=== PATIENT | female | born 1940 | race Caucasian/White ===

== ENCOUNTER 2021-04-21 21:53 | Inpatient (IN) | payer MEDICARE, OTHER, SELFPAY ==
[2021-04-21 22:55] VITALS: O2SAT 97
[2021-04-21 23:23] VITALS: BP 182/77; PULSE 71; RESP 20; TEMP 36.5; O2SAT 97
[2021-04-22] VITALS (29 sets, daily range): BP systolic 78–139; BP diastolic 41–74; PULSE 61–99; RESP 8–92; TEMP 36.2–36.6; O2SAT 9–98; BMI 21.1
[2021-04-22] MEDS: HYDROCODONE/ACET 5/325 TABLET 2 TAB PO (00:20)
[2021-04-22] MEDS: LACTATED RINGERS 1,000 ML 100 ML IV (00:22)
[2021-04-22] MEDS: HYDROMORPHONE 0.5 MG INJ IV ×4 (01:25→14:07)
--- NOTE | 2021-04-22 02:50 | PC.ADMIT ---
Patient admitted to room 213 just prior to shift change. Came via stretcher and transferred into bed with lift sheet. Admitted for left hip fx due to fall she had at home. Is alert and oriented. JACKSON and states she has hearing aids but they are at her home. Breath sounds CTA with sat of 97% on oxygen at 2L/min per NC (arrived with oxygen on) so decreased to 1L/min and will wean as able. HRR with telemetry reading of SR. BP elevated at 182/77; STENCIL SPRAYERMateo, made aware with no new orders. Complained of slight nausea but declined antiemetic. BT present and abdomen is soft. Indwelling catheter in place on arrival and urine is clear yellow. Complained of 6-7/10 pain in left hip and was initially medicated with Vicodin and ice applied; then 1 hour later given IV Dilaudid and is now resting comfortably. Is currently on bedrest and NPO due to hip fx with impending surgical repair later today. Bilateral calf SCD's applied. Fall risk score is high and bed alarm is activated. [email or web address] [facility] Admission Note: The patient,Rosa Markham,81 y/o, was given written information regarding hospital policies, unit procedures and contact persons. Patient's smoking status: Former smoker. Vital Signs - 8 hr 04/21/21 22:55 04/21/21 23:23 Temperature 97.7 F Pulse Rate 71 Respiratory Rate 20 Blood Pressure 182/77 H Pulse Oximetry 97 97
[2021-04-22 05:53] LABS: Add Manual Diff / Slide Review NO; Basophils Absolute Auto 0 /uL (0-100); Basophils Percent Auto 0.1 % (0-2); Eosinophils Absolute Auto 0 /uL (0-450); Eosinophils Percent Auto 0.1 % (2-4); Hematocrit 35.7 % (36-46); Hemoglobin 11.8 g/dL (12.0-16.0); Lymphocytes Absolute Auto 1100 /uL (1100-4500); Lymphocytes Percent Auto 8.5 % (25-40); Mean Corpuscular HGB Conc 33.1 % (30-36); Mean Corpuscular Volume 99.6 fL (80-100); Monocytes Absolute Auto 1200 /uL (0-900); Monocytes Percent Auto 9.5 % (3-14); Neutrophils Absolute Auto 10200 /uL (1500-7000); Neutrophils Percent Auto 81.8 % (50-75); Platelet Count 179 X10^3/uL (150-400); Red Blood Cell Count 3.58 X10^6/uL (4.0-5.2); Red Cell Distribution Width 12.9 % (11.6-14.8); White Blood Cell Count 12.4 X10^3/uL (4.5-11.0)
--- NOTE | 2021-04-22 05:54 | P.HP_ITS ---
History of Present Illness History of Present Illness Date Patient Seen: 04/21/21 Time Patient Seen: 23:03 Chief complaint: L FEMORAL NECK FX Narrative: Patient is Rosa Markham a 81-year-old female who was getting up out of her computer chair at home and tripped and fell hitting her left side and her head on another chair in the room lacerating her left lateral eyebrow. The patient was able to get her 's attention who called EMS she was transported to [facility] ED. Dr. Zelaya kindly accepted the patient for surgical intervention, and patient was transferred to [facility] as a direct admit for left femur fracture following ground level fall and laceration to forehead. Patient denies loss of consciousness, chest pain, shortness of breath, nausea, vomiting, abdominal pain, fever, body aches, chills, recent illness injury or trauma other than the above documented incident. Patient is not on any blood thinners. Upon arrival patient is in a significant amount of pain to the left hip area and leg. Patient is alert and orientated, her blood pressure is slightly elevated 182/77, HR 71, R 20, O2 saturation 97% on room air. We did not receive H&P or physician notes from General we did receive her labs which were for the most part unremarkable. Head CT was negative for acute intracranial processes and left leg x-ray demonstrated displaced left femoral fracture. Patient History Medical History (Updated 04/22/21 @ 06:00 by TOMMY Stevens-LANEY) Chronic back pain Essential hypertension Hyperlipidemia Surgical History (Updated 04/22/21 @ 06:00 by TOMMY Stevens-LANEY) History of appendectomy History of lumbar discectomy Family & Social History Family History (Updated 04/22/21 @ 06:01 by TOMMY Stevens-LANEY) Mother Heart attack Father Heart attack Sister ALS (amyotrophic lateral sclerosis) Social History: household members spouse Prior Living Arrangements House Safety & Behavioral: Feels Safe in Current Yes Environment Been Physically Hurt or No Threatened By a Person Suicidal Ideation Description None Suicide Plan Description No Plan Tobacco & Substance use: Smoking Status Former smoker alcohol intake never Substance Use Type does not use Meds Home Medications and Allergies Home Medications Medication Instructions Recorded Confirmed Type aspirin 325 mg tablet 325 mg PO DAILY 04/22/21 04/22/21 History atorvastatin 40 mg tablet 40 mg PO BEDTIME 04/22/21 04/22/21 History chlorthalidone 25 mg tablet 25 mg PO DAILY 04/22/21 04/22/21 History cholecalciferol (vitamin D3) 50 50 mcg PO DAILY 04/22/21 04/22/21 History mcg (2,000 unit) capsule gabapentin 100 mg capsule 200 mg PO BEDTIME 04/22/21 04/22/21 History metoprolol succinate 100 mg 100 mg PO DAILY 04/22/21 04/22/21 History capsule sprinkle, ext. release 24 hr multivitamin 1 tab PO DAILY 04/22/21 04/22/21 History Allergies Allergy/AdvReac Type Severity Reaction Status Date / Time No Known Drug Allergies Allergy Verified 04/22/21 00:16 Review of Systems Review of Systems Narrative: All 12 point systems reviewed with the patient and are negative except otherwise documented. Exam Vital Signs (past 8 hours): - 04/21/21 22:55 04/21/21 23:23 04/22/21 03:15 Temperature 97.7 F 97.8 F Pulse Rate 71 69 Respiratory Rate 20 18 Blood Pressure 182/77 H 137/60 Pulse Oximetry 97 97 95 Oxygen Delivery Method Nasal Cannula Oxygen Flow Rate 1 Narrative Exam Narrative: General: Patient is a ana well-developed, well-nourished female in moderate pain, but in no physiologic distress at this time. HEENT: Normocephalic, atraumatic, extraocular muscles intact, oral pharynx is clear and mucous membranes are moist. Neck is supple and symmetric, trachea is midline, no adenopathy, no thyroid enlargement, nontender, no masses palpated. Negative for JVD Chest: Normal AP diameter and contour without kyphoscoliosis, no nasal flaring, retractions, or tachypneic labored Lungs: Auscultation of all lung haddad are clear without adventitious sounds, wheezes, rhonchi, or rales. Cardio: S1 & S2 with regular rate and rhythm without murmur, rubs, or gallops, no carotid bruit, no cardiac pulsations present. Abdomen: Soft nontender, negative for organomegaly, or masses. Bowel sounds are present in all 4 quadrants without guarding or rebound, no CVA tenderness. Musculoskeletal: Left protrusion deformity noted at approximately the head of the left femur. all other 3 extremities- no deformity, crepitus, effusions, cyanosis, clubbing or edema present. radial and pedal pulses are normal. Skin: Warm dry and intact without rashes, ulcerations or petechiae. Patient does have sutured left laceration to the lateral edge of the left eyebrow. Neuro: Alert and orientated x3, sensation to touch intact, no gross deficits no satnam of cranial nerves. Psych: Patient has a well-kept appearance, appropriate affect, mental status attitude thought context and judgment are appropriate for age. Objective Labs Result Diagrams: 04/22/21 05:20 04/22/21 05:20 Assessment & Plan Assessment & Plan narrative: Patient is a 81-year-old female with history of hypertension, hyperlipidemia, chronic back pain who had a mechanical ground level fall at home resulting in a displaced left for moral fracture and laceration to forehead. Dr. Malloy graciously accepted the patient for surgery candidate. 1. Mechanical ground level fall resulting in left femoral displaced fracture and forehead laceration, acute, present on admission -patient on bed rest, catheter placed, NPO after midnight, pain control and inflammation -patient on LR at 100 cc/hour, blood sugar checks q.6 hours while NPO -a.m. labs ordered CBC CMP PT and PTT -Patient to go to the OR tomorrow with Dr. Zelaya for femur repai -I did not have patient's chart notes from [facility] to review, 3-4 attempts were made to obtain chart note records starting at approximately 8:00 p.m. 2. Essential hypertension, acute on chronic, present on admission-uncontrolled -continue patient's chlorothiazide and metoprolol 3. Hyperlipidemia, chronic, present on admission Continue patient's Lipitor 4. Chronic back pain, chronic, present on admission Continue patient's gabapentin Code status: Full code Surrogate decision maker: spouse Nick Lowery COVID PCR: Negative COVID vaccination: Pfizer November of 2020 DVT/VTE prophylaxis: Contraindicated due to surgery, SCDs only Disposition: Admit greater than 2 midnights. I have utilized all available immediate resources to obtain, update, or review the patient's current medications. I confirmed that the patient's advanced care plan is present, Code status is documented and/or surrogate decision maker is listed in the patient's medical record.
[2021-04-22 06:02] LABS: INR 1.1 (0.9-1.3); Prothrombin Time 12.2 SECONDS (10.1-12.7)
[2021-04-22 06:04] LABS: PTT Partial Thromboplastin Tim 32 SECONDS (26.4-36.2)
[2021-04-22 06:07] LABS: Alanine Aminotransferase 28 IU/L (<35); Albumin 4.2 g/dL (3.5-5.0); Albumin Globulin Ratio 1.4 (1.0-2.8); Alkaline Phosphatase 82 U/L (38-126); Aspartate Aminotransferase 38 IU/L (14-36); Bilirubin Total 0.8 mg/dL (0.2-1.3); Blood Urea Nitrogen 24 mg/dL (7-17); Carbon Dioxide 30 mmol/L (22-32); Chloride 100 mmol/L (98-107); Estimated Glomerular Filt Rate 56.1 mL/min (>60); Glucose 112 mg/dL (80-110); HEMOLYSIS < 15 (0-50); Magnesium 1.3 mg/dL (1.6-2.3); Potassium 4.4 mmol/L (3.4-5.1); Sodium 137 mmol/L (137-145); Total Protein 7.2 g/dL (6.3-8.2)
[2021-04-22] MEDS: MAGNESIUM SULFATE 2 GM/50 ML PIGGYBACK IV (07:37)
--- NOTE | 2021-04-22 08:16 | PM.CN ---
History of Present Illness Consult details Date Patient Seen: 04/22/21 Time Patient Seen: 08:16 Chief complaint: L FEMORAL NECK FX Reason for consult: Left femoral neck fracture Requesting provider: Silvina Galindo Narrative: Patient is a 81-year-old female that sustained a ground level fall tripping getting up from her computer and injured her left hip. She was taken to [facility] found a displaced left femoral neck fracture this injury occurred on Thursday04/21/2021. Due to the COVID pandemic and unavailability of hospital bed as within the [facility] or other closer hospital systems transfer to [facility] was completed. She also hit her head during her fall and has a few stitches left side of her episcopal. She did have a CT scan at the outside hospital that was negative for intracranial processes. She is alert and awake and axes her own historian today. She states she had immediate pain when she fell. She does have a history of osteopenia in the past but does not believe she had osteoporosis. She is a community ambulator without assistive devices. She lives at home with her has additional family or friends close by. Patient does state she used to take Actonel for about 5 years but this was stopped many years ago.--she is a former smoker but quit many years ago. She does note that her still smokes at home but does not smoke around her or in the house. She does not take any blood thinners. Meds Home Medications and Allergies Home Medications Medication Instructions Recorded Confirmed Type aspirin 325 mg tablet 325 mg PO DAILY 04/22/21 04/22/21 History atorvastatin 40 mg tablet 40 mg PO BEDTIME 04/22/21 04/22/21 History chlorthalidone 25 mg tablet 25 mg PO DAILY 04/22/21 04/22/21 History cholecalciferol (vitamin D3) 50 50 mcg PO DAILY 04/22/21 04/22/21 History mcg (2,000 unit) capsule gabapentin 100 mg capsule 200 mg PO BEDTIME 04/22/21 04/22/21 History metoprolol succinate 100 mg 100 mg PO DAILY 04/22/21 04/22/21 History capsule sprinkle, ext. release 24 hr multivitamin 1 tab PO DAILY 04/22/21 04/22/21 History Allergies Allergy/AdvReac Type Severity Reaction Status Date / Time No Known Drug Allergies Allergy Verified 04/22/21 00:16 Review of Systems Review of Systems Narrative: Alert and oriented no acute distress. Visual changes or headache. Complains of left hip pain. States his confirm the position. Does endorse hitting her head when she fell. No loss of consciousness. No nausea vomiting fevers or chills. No numbness or tingling Exam Vital Signs (past 8 hours): - 04/22/21 03:15 04/22/21 06:28 Temperature 97.8 F Pulse Rate 69 Respiratory Rate 18 Blood Pressure 137/60 Pulse Oximetry 95 94 Oxygen Delivery Method Room Air Oxygen Flow Rate 0 Narrative Exam Narrative: Patient is alert and oriented female lying in bed no acute distress. She is lying cross white in her bed with of both hips and knees flexed and with the left leg abducted towards the right. This is somewhat shortened. HEENT exam reveals several sutures on her left episcopal. There is no erythema no drainage. No ecchymosis. Otherwise normal exam. Respiratory exam is lungs are clear to auscultation bilaterally. Heart is regular rate and rhythm. Abdomen is soft. exam Mendoza catheter in place. Musculoskeletal examination: She does demonstrate dorsiflexion plantar flexion wiggles her toes bilaterally. She has palpable dorsalis pedis pulses bilaterally. Caps were soft. Tenderness along the hip. Ice pack in place. Sensation grossly intact to light touch. The remainder of motor exam of the hips and knees is deferred due to known fracture Objective Imaging AP pelvis and the frog lateral left hip: My impression: Displaced femoral neck fracture, lumbar spine spondylosis also demonstrated. Labs Result Diagrams: 04/22/21 05:20 04/22/21 05:20 Labs: Laboratory Results - last 24 hr 04/22/21 04/22/21 04/22/21 05:20 05:20 05:20 WBC 12.4 H RBC 3.58 L Hgb 11.8 L Hct 35.7 L MCV 99.6 MCH 33.0 MCHC 33.1 RDW 12.9 Plt Count 179 Neut % (Auto) 81.8 H Lymph % (Auto) 8.5 L [place] % (Auto) 9.5 Eos % (Auto) 0.1 L Baso % (Auto) 0.1 Neut # (Auto) 17007 H Lymph # (Auto) 1100 [place] # (Auto) 1200 H Eos # (Auto) 0 Baso # (Auto) 0 PT 12.2 INR 1.1 APTT 32 Sodium 137 Potassium 4.4 Chloride 100 Carbon Dioxide 30 BUN 24 H Creatinine 0.96 Estimated GFR 56.1 L BUN/Creatinine Ratio 25.0 H Glucose 112 H Calcium 10.0 Magnesium 1.3 L Total Bilirubin 0.8 AST 38 H ALT 28 Alkaline Phosphatase 82 Total Protein 7.2 Albumin 4.2 Globulin 3.0 Albumin/Globulin Ratio 1.4 Assessment & Plan Assessment and plan (1) Femoral neck fracture: Status: Acute (2) Laceration of head: Qualifiers: Encounter type: initial encounter Location of open wound of head: unspecified part of head Status: Acute Assessment & Plan narrative: Patient has a displaced left femoral neck fracture. She is indicated for fixation with hemiarthroplasty. She is NPO except for meds. Plan will be to do this today when the OR is available likely in the afternoon. Plan would be surgery with Dr. Khoa Muhammad as long as he is available. Dr. Gonzalez if he is not. Risks and benefits of surgery were discussed with patient. She has elected to proceed and will plan on surgery when the OR is available today. COVID-19 COVID-19 status: Negative Time Spent With Patient Time with patient: 15-24 minutes
[2021-04-22] MEDS: METOPROLOL ER 50 MG TABLET 100 MG PO (08:59)
[2021-04-22] MEDS: CHLORTHALIDONE 25 MG TABLET PO (09:00)
[2021-04-22] MEDS: SODIUM CHLORIDE 0.9% FLUSH 10 ML IV ×2 (09:01→22:17)
--- NOTE | 2021-04-22 09:32 | CM.DANOTE ---
Patient is a 81 yo female who was admitted on 04/21/21 for L Hip Fx. Pt has MCR and PRE DIM for insurance and her PCP is Dr. Dean Garrison. EMR was reviewed. Per MD, pt with [facility] after getting tripped up on a chair and had eyebrow laceration and L Femoral Neck fx and Ortho has accepted for surgery for today vs tomorrow pending surgery schedule. SW met bedside with pt and explained role and she confirms that she lives in [place] with her and has local supportive friends. Pt and spouse are both retired and spouse can assist at d/c if needed as well as local friends. Pt states her sister is still working. Pt denies any hx of HH or SNF but states she is aware of both from her mother that they helped care for but who is now . SW discussed PT eval post surgery to determine pt's needs and she states her preference is home and would be agreeable to HH if needed but states I will definitely not go to SNF, I dealt with that with my mom and I refuse to go to SNF. Pt seemed to mostly answer questions appropriately and provide accurate historical information but seemed to maybe have mild cog impairment or slight confusion but could be due to pain, pain medication, etc.. But could maybe benefit from OT SLUMS eval if this persists. Plan: SW to follow closely for when surgery is scheduled and then PT/OT eval after surgery to determine if pt's plan of home with spouse and HH is safe. SW to follow for possible OT SLUMS eval if needed. CONCHIS Gutierres Discharge Planning/Care Management CM Discharge Assessment Start: 04/22/21 09:28 Freq: Status: Active Protocol: Document 04/22/21 09:28 (Rec: 04/22/21 09:31 [id number]) Discharge Planning Assessment Assigned Lumber Sorter Machine CONCHIS Bain DPOA/Assigned Designee Name spouse Advance Directives? Yes Advance Directives on File No History Provided By Patient,Medical Record Has Patient been admitted in last 30 No days? Prior Living Arrangements House Household Members spouse Type of transporation used prior to Drives own vehicle admit Independent with ADL's Yes Is patient alert and oriented? Yes Caregiver for Another No Patient/Family Preference Home with Home Health Comment Pt really does not want SNF Barriers to Discharge No Comment Pending PT eval post surgery Discharge Plan Home with Home Health Transportation Arrangement Spouse or friends can transport at d/c if safe for home Additional Comment Waiting for surgery and PT/OT eval and recommendations Whiteboard Updated in Patient Room with Yes name and ext. # of Lumber Sorter Machine Review Status In Process Please Provide Date Initial DC 04/22/21 Assessment Was Performed Next Review Type Continued Stay Review
[2021-04-22] MEDS: ACETAMINOPHEN 325 MG TABLET 650 MG PO ×2 (13:23→21:49)
[2021-04-22] MEDS: LACTATED RINGERS 1,000 ML 42 ML IV (14:34)
--- NOTE | 2021-04-22 14:48 | SUR.HOLD ---
Patient care by Carlo Flores RN; documentation by Rigoberto Negron RN
--- NOTE | 2021-04-22 14:48 | SUR.HOLD ---
Sat 98% on 1 1/2 LNP
--- NOTE | 2021-04-22 14:57 | PM.PREOP ---
Pre-operative Note Interval Note History & Physical reviewed/Exam performed by Physician: Yes Changes to H&P: No H&P completed within 30 days and has changed as indicated here:: Plan for left hip hemiarthroplasty for displaced femoral neck fracture. Patient is a community ambulator without any assistive devices. She has no previous history of left groin pain. Initial plan is for a Press-Fit hemiarthroplasty however cemented hemiarthroplasty will be available as backup. I reviewed the consent with the patient including the risks and benefits risks include but are not limited to infection, dislocations, fractures, damage to local structures such as vessels and nerves, need for future surgeries, DVT, PE, , etc.. Patient demonstrates understanding of the risks and benefits of surgery and wishes to proceed with a left hip hemiarthroplasty.
--- NOTE | 2021-04-22 15:10 | PC.NURSE ---
A&Ox4. Hard of hearing, does not have hearing aids with her. VSS. Pain 5-9/10. Given PRN 0.5 mg IV dilaudid and tylenol which helped to control her pain. O2 dropped to low 80's after administration on dilaudid and was placed in 2L nasal cannula O2 which increased her oxygen back up to the low 90's. Mendoza catheter draining clear, yellow urine. Bed bound. Taken down to surgery and off of unit at 14:20.
[2021-04-22] MEDS: CEFAZOLIN 1 GM VIAL IV (15:26)
--- NOTE | 2021-04-22 15:37 | SUR.OPER ---
Lateral on padded OR bed. Gel axillary roll. Arms secured on padded armboard with pillow supporting top arm. Padded hip positioner braces x4 - anterior and posterior chest and pelvis. Additional gel pad used anterior pelvis. Gel pad under bottom leg from knee to foot and secured with tape over sheet.
[2021-04-22] MEDS: ROPIVACAINE 0.5% PF 5 MG/ML 20ML VIAL 10 ML INJ (15:48)
[2021-04-22] MEDS: MORPHINE 4 MG/ML INJ INJ (15:48)
[2021-04-22] MEDS: KETOROLAC 30 MG/ML VIAL IV (15:49)
--- NOTE | 2021-04-22 16:30 | DI.RAD.S_ITS ---
PROCEDURE: XR PELVIS 1-2V INDICATIONS: LEFT HEMIARTHROPLASTY INNER OP TECHNIQUE: Intra-operative view of the pelvis and hip acquired. COMPARISON: None. FINDINGS: Bones: Intraoperative devices prior to placement of arthroplasty prostheses are in expected positions. No fractures or suspicious bony lesions. Soft tissues: Overlying surgical retractors are present, along with other intraoperative changes. IMPRESSION: Intraoperative film shows left arthroplasty spacer equipment in good position. Approved by: Eben Zhu M.D. on 04/22/2021 at 16:10
--- NOTE | 2021-04-22 16:31 | DI.RAD.S_ITS ---
PROCEDURE: XR PELVIS 1-2V INDICATIONS: INNER OP #2 TECHNIQUE: Intra-operative view of the pelvis and hip acquired. COMPARISON: [facility], CR, XR PELVIS 1-2V, 04/22/2021, 16:16. FINDINGS: Bones: Intraoperative devices prior to placement of arthroplasty prostheses are in expected positions. No fractures or suspicious bony lesions. Soft tissues: Overlying surgical retractors are present, along with other intraoperative changes. IMPRESSION: Left hip hemiarthroplasty in progress Approved by: Eben Zhu M.D. on 04/22/2021 at 16:11
--- NOTE | 2021-04-22 16:53 | DI.RAD.S_ITS ---
PROCEDURE: XR PELVIS 1-2V INDICATIONS: POST OPERATIVE TOTAL LEFT HIP TECHNIQUE: 1 view(s) of the pelvis acquired. COMPARISON: [facility], CR, XR PELVIS 1-2V, 04/22/2021, 16:32. FINDINGS: Interval revision left total hip arthroplasty. No acute complicating hardware feature. No ho-chunk bone fracture. IMPRESSION: Interval revision left total hip arthroplasty. Dictated by: Edgardo Patterson M.D. on 04/22/2021 at 19:15 Approved by: Edgarod Patterson M.D. on 04/22/2021 at 19:15
[2021-04-22] MEDS: TRANEXAMIC ACID 1,000 MG in SODIUM CHLORIDE 0.9% 100 ML 200 ML IV (17:07)
--- NOTE | 2021-04-22 17:24 | PM.OP.1 ---
Operative Date/Time/Diagnoses Date of procedure: 04/22/21 Time of procedure: 17:24 Pre-op diagnosis: left intra-capsular femoral neck fracture Post-op diagnosis: same Procedure & Clinicians Procedure: Left hip cemented hemiarthroplasty with cerclage cable Same procedure as scheduled: Yes Indications: Displaced intracapsular femoral neck fracture Surgeon: Khoa Muhammad Dowel Inserting Machine Operator: John Zimmerman Click Yes if Unassisted: No Anesthesia Type: General Operative Notes Findings: Displaced intracapsular femoral neck fracture. There was a large inverted triangular fracture fragment which extended down to the level of the lesser trochanter at the medial calcar. No distal extension the fracture line. Closure Type: primary Prosthetic devices, grafts, tissues, transplants, or devices: [employer] Sy[employer] cemented stem size 9 standard offset 18.5 mm cerclage cable Unipolar tandem 45 mm head with a +4 12/14 taper sleeve Estimated Blood Loss (mL): 100 Procedure in detail: Patient was met in the preoperative holding area where the site and side of surgery marked by MD. informed consent was reviewed and signed the preoperative holding area. All last minute questions were answered. Patient was then brought back in the operating room where she was induced under general anesthesia she was then transferred on the operating table. She was then placed in the right lateral decubitus position all bony prominences well padded and axillary roll placed. The left lower extremity then prepped and draped in normal sterile fashion. A surgical time-out was performed verifying the site and side of surgery as well the knee the patient. A curvilinear incision over the greater trochanter aiming superior and posterior was then made in the skin with a 10. Blade. Electrocautery dissection was carried down to the level of the ITB band and superior gluteal fascia. The ITB band and superior gluteal fascia was incised with a new 10. Blade. The fibers of the gluteus corwin were split in length the fibers. A Cobra was then placed over under the gluteus medius to give us exposure to the short external rotators well as piriformis. A curved osteotome was then placed deep to the piriformis the piriformis was released off the greater trochanter. The short external rotators were then taken down as a sleeve. A 'L' shaped capsulotomy was then performed. The piriformis and the corner of the capsulotomy were both tagged with a FiberWire suture. At this point the femoral neck fracture was able to be identified the hip was then brought into 90? of internal rotation and a revision neck cut was then performed. The napkin ring of femoral bone was removed as well as the femoral head which slightly fragmented upon removal. Great care was care was taken to remove all fragments of bone. This point was noted there was a large medial calcar fracture fragment which was then inverted triangular shape that would extend down to the level of the lesser trochanter. There is no fracture extension distally this. However due to this fracture fragment I could not Press-Fit the stem although she did have relatively good bone quality. I then passed a cable just proximal to the lesser trochanter to prevent fracture propagation. I then used a canal finer followed by a umbrella tipper hand to a size 9 and then broached to a size 8 and a size 9 stem. Then calcar planed off the size 9 broach I then trialed with a standard offset neck length and a 36+ 0. We slightly short with intraoperative x-ray. I then selected a +4 neck length the hip was trialed again through range of motion was stable in position of sleep as well as the hip flexion 90? internal rotation to approximately 70?. At this point the hip was dislocated the trials were then removed a cement restrictor was placed approximately 15 cm down to the canal measured from the medial calcar. A pulse lavage was then used to prep the canal. Cement was then mixed and cement was then placed in the canal starting from distal and pushing myself proximal and out of the femur wall pressure rising with cement. I then placed the size 9 stem into the cement mantle and removed excess cement held the stem in place until the cement was fully cured. Once this had occurred the 40 5+4 head was then malleted onto the trunnion hip was reduced a final time. The hip was then thoroughly irrigated with pulse lavage normal saline. The capsulotomy was then repaired using a running Ethibond suture. A drill was then used to drill hole in the greater trochanter and limb of the piriformis tag suture was then passed through this hole using a Palma suture Passer the other limb of the tag suture was then passed through the abductor tendon using a free needle. This was then tied down. The ID band was then closed using interrupted 1. Vicryl followed by running 1. Vicryl in the superior gluteal fascia followed by a running 1. Vicryl in the fat layer followed by 2 Vicryl in subcutaneous layer followed by sarahy on skin an Aquacel dressing. Complications: none Post-operative Condition: stable Disposition: PACU Plan for aftercare: Weightbearing as tolerated left lower extremity, posterior hip precautions, 24 hours postop antibiotics, aspirin 81 mg b.i.d. for 6 weeks for DVT prophylaxis.
--- NOTE | 2021-04-22 19:22 | SUR.PHASEI ---
Addendum entered by Belle Flores R.N. 04/22/21 20:40: Pt was able to transition from a simple mask after neb tx to NC on 5L. Sat noted to be in the mid to upper 90's. Pt coughing freely, and has been encouraged to us the IS to also help clear lungs. She has been show by this RN and RT as well. She had a little difficulty orienting to place but was clear as to what had happened to her. By the time she was returned to her room she was oriented to place and time. Bed side report was given and pt was in stable condition upon transfer Addendum entered by Belle Flores R.N. 04/22/21 19:35: rt here to eval pt. Plan for neb tx. Original Note: pt struggles to maintain adequate 02 sats unless she is placed on a non rebreather. Rt was notified for a eval and treat.
--- NOTE | 2021-04-22 19:38 | PM.PN.1 ---
Subjective Subjective Interval history: The patient is a 81 y/o female who tripped and fell suffering a left femoral fracture. Patient is awaiting surgical repair. She has significant pain. Exam Vital Signs (past 8 hours): - 04/22/21 14:14 04/22/21 14:30 04/22/21 17:46 Temperature 97.8 F 97.1 F L Pulse Rate 71 99 H Respiratory Rate 20 16 Blood Pressure 139/74 79/48 L Pulse Oximetry 94 86 L 94 04/22/21 17:51 04/22/21 17:56 04/22/21 18:01 Temperature Pulse Rate 75 66 95 H Respiratory Rate 92 H 92 H 8 L Blood Pressure 94/45 L 97/51 L 91/51 L Pulse Oximetry 9 L 11 L 92 04/22/21 18:06 04/22/21 18:21 04/22/21 18:41 Temperature Pulse Rate 61 66 78 Respiratory Rate 10 L 19 14 Blood Pressure 88/50 L 115/43 L 109/61 Pulse Oximetry 96 98 85 L 04/22/21 19:01 04/22/21 19:16 04/22/21 19:21 Temperature Pulse Rate 69 74 82 Respiratory Rate 13 87 H 15 Blood Pressure 92/50 L 78/59 L 85/50 L Pulse Oximetry 87 L 15 L 92 Oxygen Delivery Method Nasal Cannula Oxygen Flow Rate 4 Narrative Exam Narrative: ill appearing female uncomfortable secondary to pain Resp Other: Lungs: clear to auscultation Cardio Other: RRR nl Sl S2 GI Other: Abd: soft/ non tender/ non distended Extrem Other: No edema, left leg internally rotated Objective Labs Result Diagrams: 04/22/21 05:20 04/22/21 05:20 Labs: Laboratory Results - last 24 hr 04/22/21 04/22/21 04/22/21 05:20 05:20 05:20 WBC 12.4 H RBC 3.58 L Hgb 11.8 L Hct 35.7 L MCV 99.6 MCH 33.0 MCHC 33.1 RDW 12.9 Plt Count 179 Neut % (Auto) 81.8 H Lymph % (Auto) 8.5 L [place] % (Auto) 9.5 Eos % (Auto) 0.1 L Baso % (Auto) 0.1 Neut # (Auto) 36657 H Lymph # (Auto) 1100 [place] # (Auto) 1200 H Eos # (Auto) 0 Baso # (Auto) 0 PT 12.2 INR 1.1 APTT 32 Sodium 137 Potassium 4.4 Chloride 100 Carbon Dioxide 30 BUN 24 H Creatinine 0.96 Estimated GFR 56.1 L BUN/Creatinine Ratio 25.0 H Glucose 112 H Calcium 10.0 Magnesium 1.3 L Total Bilirubin 0.8 AST 38 H ALT 28 Alkaline Phosphatase 82 Total Protein 7.2 Albumin 4.2 Globulin 3.0 Albumin/Globulin Ratio 1.4 PFSH Medical History Chronic back pain Essential hypertension Hyperlipidemia Surgical History History of appendectomy History of lumbar discectomy Family History Mother Heart attack Father Heart attack Sister ALS (amyotrophic lateral sclerosis) Social History household members: spouse Smoking Status: Former smoker alcohol intake: never Assessment & Plan Assessment & Plan narrative: Mechanical ground level fall resulting in left femoral displaced fracture and forehead laceration, acute, present on admission -patient on bed rest, catheter placed, NPO after midnight, pain control and inflammation -patient on LR at 100 cc/hour, blood sugar checks q.6 hours while NPO -a.m. labs ordered CBC CMP PT and PTT -surgery today . 2. Essential hypertension, acute on chronic, present on admission-uncontrolled -continue patient's metoprolol, hold diuretic for now 3. Hyperlipidemia, chronic, present on admission Continue patient's Lipitor 4. Chronic back pain, chronic, present on admission Continue patient's gabapentin I have utilized all available immediate resources to obtain, update, or review the patient's current medications.
[2021-04-22] MEDS: ALBUTEROL/IPRATROPIUM 3 ML AMPUL INH (19:45)
--- NOTE | 2021-04-22 21:12 | PC.NURSE ---
returned to floor from PACU, bedside report from ERNIE Odonnell. Aquacel dressing to L hip incision is CDI, ice pack in place. patient is alert to self-and knows she is in the hospital. no s/sx of pain/discomfort. o2 sats are low 90's, desats easily. LS w/ crackles at bases and Right mid lobe. o2 at 5 lpm via NC. IS at bedside, attempted use, she needs further demonstration/instruction. shallow breaths. call to RT to request a sticky CPOX probe. received, and update given on patient. call light w/in reach.
[2021-04-22] MEDS: SENNOSIDES 8.6 MG TABLET 17.2 MG PO (21:49)
[2021-04-22] MEDS: ASPIRIN EC 81 MG TABLET PO (21:52)
[2021-04-22] MEDS: DOCUSATE 100 MG CAPSULE PO (21:53)
[2021-04-22] MEDS: LACTATED RINGERS 1,000 ML 200 ML IV (21:59)
[2021-04-22] MEDS: CEFAZOLIN 1 GM VIAL 2 GM IV (22:15)
[2021-04-22] MEDS: polyethylene glycoL 3350 17 GM POWD.PACK PO (22:17)
[2021-04-23] VITALS (18 sets, daily range): BP systolic 99–153; BP diastolic 43–87; PULSE 70–98; RESP 16–18; TEMP 36–36.7; O2SAT 92–98
--- NOTE | 2021-04-23 01:43 | PC.NURSE ---
Patient mostly sleeping but easily aroused. Confused; only able to state name and birthdate and knows she is in the hospital. Keeps repeating birthdate when asked other orientation questions. Breath sounds CTA but respirations are shallow and has intermittent non-productive cough. Oxygen at 7L/min per NC at shift change with sat of 95%. HRR with telemetry reading of SR. Denies nausea. BT present and abdomen is soft. Indwelling catheter is patent; urine is clear, hadley. Has abductor pillow between legs. Moves easily side to side and shows no signs of any pain/ discomfort and denies pain when asked. Aquacel dressing to left hip is CDI. Wearing bilateral calf SCD's. Good pedal pulse/cap refil. Fall risk score is high and bed alarm is activated.
[2021-04-23] MEDS: LACTATED RINGERS 1,000 ML 75 ML IV (03:13)
[2021-04-23] MEDS: CEFAZOLIN 1 GM VIAL 2 GM IV (06:47)
[2021-04-23 06:54] LABS: Hemoglobin 8.6 g/dL (12.0-16.0)
[2021-04-23] MEDS: ASPIRIN EC 81 MG TABLET PO ×2 (09:07→20:29)
[2021-04-23] MEDS: DOCUSATE 100 MG CAPSULE PO ×2 (09:07→20:29)
[2021-04-23] MEDS: SODIUM CHLORIDE 0.9% FLUSH 10 ML IV ×2 (09:07→20:30)
[2021-04-23] MEDS: ACETAMINOPHEN 325 MG TABLET 650 MG PO ×3 (09:07→20:29)
--- NOTE | 2021-04-23 10:05 | PT.IIE ---
Current Diagnoses Laceration without foreign body of unspecified part of head, initial encounter (04/21/21) Fracture of unspecified part of neck of unspecified femur, initial encounter for closed fracture (04/21/21) Surgery Performed Operation Date: 04/22/21 14:30 Actual Procedures p Hip Hemiarthroplasty(Left) - Khoa Muhammad MD Medical History (Last Reviewed 04/23/21 @ 10:33 by Joey Velasco PA-C) Chronic back pain Essential hypertension Hyperlipidemia Physical Therapy Inpatient Evaluation/Re-Eval M1 PT/OT-IP Prior Functional Status Start: 04/23/21 12:14 Freq: NEEDED Status: Active Protocol: Document 04/23/21 10:05 AB (Rec: 04/23/21 12:28 AB [id number]) Medical Review Prior Functional Status Medical History Reviewed Yes Communication able to make needs known; easily distracted and very impulsive Mobility and Gait stated that she is independent with all mobilities and ambulation without AD; has h/o falls Social History Household Members spouse Living Arrangements House Number of Floors (Floors) One Floor Number of Stairs To Enter/Railing? 4 steps wide 2 rails ( can only hold on to one rail at a time) Home Environment High Toilet,Walk in Shower,Tub /Shower Additional Social History Comment stated that her sister lives around her property and can assist her more than spouse can. M2 PT-IP Current Condition Start: 04/23/21 12:14 Freq: NEEDED Status: Active Protocol: Document 04/23/21 10:05 AB (Rec: 04/23/21 12:28 AB [email or web address]) Physical Therapy Current Condition Current Condition Evaluation Date 04/23/21 Treatment Diagnosis L femoral neck fx s/o hemiarthroplasty; difficulty in walking Onset Date 04/21/21 Precautions Posterior Hip Precautions No Hip Flexion > 90 degrees,No Hip Internal Rotation,No Hip Adduction Weight Bearing Status Weight Bearing Status Weight Bear as Tolerated Allowed Weight Bearing Amount (enter % LLE WBAT or #) (%) M3 PT-IP Subjective Start: 04/23/21 12:14 Freq: NEEDED Status: Active Protocol: Document 04/23/21 10:05 AB (Rec: 04/23/21 12:28 AB [email or web address]) Subjective Physical Therapy Visit Type Type Initial Evaluation Visit Start Time 10:05 Visit Stop Time 11:05 Total Visit Minutes 60 Number of [employer]IC Visits 0 Physical Therapy Visit Comments Patient Comments agreeable to do PT Therapy Pain Assessment Pain When Pain Assessed At Rest Pain Present Pain Present Pain Reported Location left hip Intensity 5 Scale Used Numeric (0 - 10) Pain Management Techniques Apply Cold,Distraction, Modification of Treatment,Re- positioning,Timing of Activity with Medications M4 PT-IP Mobility and Gait Start: 04/23/21 12:14 Freq: NEEDED Status: Active Protocol: Document 04/23/21 10:05 AB (Rec: 04/23/21 12:28 AB [email or web address]) PT-Bed Mobility Assessment Supine to Sit Supine to Sit Maximum Assistance,1 Person Assistance PT-Transfer Assessment Sit to and From Stand Sit to and from Stand Maximum Assistance,2 Person Assistance,Use of Upper Extremities Equipment Transfer Assistive Device Gait Belt,Front Wheeled Walker Orthotic/Prosthetic Devices or Brace: No Transfers Transfer Destination Chair Transfer Technique ambulated using FWW Transfer Ability Level of Assist Maximum Assistance,2 Person Assistance,Use of Upper Extremities Comments Mobility Comments educated pt on hip precautions . pt with confusion, easily distracted and impulsive. BP in supine 127/61. completed supine to sit max A and max cues. completed sit to stand max A x 2 and max cues for hip precautions. pt with tendency to internally rotate LLE and required max A to prevent from turning in. pt ambulated towards the chair max A x 2 and max cues. pt is very impulsive. has an unsteady gait and max cues for standing balance and hip precautions. pt c/o nausea after transfer to chair. BP: 129/70. refused ambulation. positioned on chair max A x 2 and max cues. call light and table placed within reach. informed pt regarding current mobility level and SNF recommendation and pt refuse to go to SNF. Gait Assessment Gait Gait Assistance Required: Maximum Assistance,2 Person Assist Distance (Feet) 12 Assistive Devices Assistive Device Gait Belt,Front Wheeled Walker Orthotic/Prosthetic Devices or Brace: No Gait Deviations General Gait Pattern Antalgic,Decreased Stride Length,Decreased Feet Clearance,Step-to Gait Factors Limiting Gait Function Factors Limiting Gait Function Decreased Activity Tolerance, Decreased Strength,Difficulty Following Directions,Limited Range of Motion,Pain,Poor Balance,Poor Safety Awareness PT-Balance Assessment Sitting Balance and Reactions Static Sitting Balance Ability Good Dynamic Sitting Balance Ability Fair Standing Balance and Reactions Static Standing Balance Ability Poor Dynamic Standing Balance Ability Poor Device Used FWW M5 PT-IP Objective Assessments Start: 04/23/21 12:14 Freq: NEEDED Status: Active Protocol: Document 04/23/21 10:05 AB (Rec: 04/23/21 12:28 AB [email or web address]) Orientation Orientation/Cognition Level of Alertness Confusional State Orientation Name Safety Awareness Decreased Safety Awareness Memory Description Short Term Impaired,Longterm Impaired Gross Range of Motion Lower Extremity ROM Assessment Within Functional Limits Strength Lower Extremity Strength Assessment Left Impaired Hip 3+/5 Knee 4-/5 Coordination Assessment Gross Coordination Gross Coordination WNL Sensation Assessment Sensation Gross Sensation WNL Muscle Tone Muscle Tone WNL Yes M6 PT-IP Treatment Start: 04/23/21 12:14 Freq: NEEDED Status: Active Protocol: Document 04/23/21 10:05 AB (Rec: 04/23/21 12:28 AB [email or web address]) Physical Therapy Treatment Education Education Provided Precautions,Weight Bearing Status,Post-Op Packet,Safety M7 PT-IP Assessment and Plan Start: 04/23/21 12:14 Freq: NEEDED Status: Active Protocol: Document 04/23/21 10:05 AB (Rec: 04/23/21 12:28 AB [email or web address]) PT Summary Assessment and Plan Potential Rehabilitation Potential Fair Status of Condition at Evaluation Evolving Summary Impairments Pain,ROM,Strength,Balance, Coordination,Sensation,Tone, Cognition,Bed Mobility, Transfers,Gait,Activity Tolerance Assessment Summary pt requiring max A x 2 with mobility and has decrease safety awareness. informed pt that SNF rehab is recommended at this time and pt refuses. will conduct caregiver training when appropriate. pt also has difficulty adhereing to her hip precautions and requires max cues for safety. will continue to assess mobility progress. Goals Bed Mobility Goal Standby Assistance Transfer Goal Standby Assistance,Front Wheeled Walker Gait Goal Standby Assistance,Front Wheel Walker Gait Distance 150 Other Goals up/down 4 steps 1 rail CGA Days to Meet Goals 10 Frequency of Treatment Frequency Of Treatment Twice a Day Treatment Plan Physical Therapy Treatment Plan Bed Mobility Training,Transfer Training,Gait Training, Therapeutic Exercise,Balance Retraining,Post Op Education, Discharge Planning,Hot or Cold Pack,Neuromuscular Re-ed, Coordination Retraining,Manual Therapy Precautions Posterior Hip Precautions No Hip Flexion > 90 degrees,No Hip Internal Rotation,No Hip Adduction Other Precautions WBAT LLE Recommendations To Nursing Amount of Assist Needed 2 Person Assist Discharge Recommendations PT Discharge Recommendations Home with 16/03 Assist Available,Home Health,SNF Rehab,Home vs SNF Equipment Needed for Home Before FWW Discharge Transportation Needs at Discharge Private Vehicle,Wheelchair/ Cabulance
[2021-04-23] MEDS: OXYCODONE IR 5 MG TABLET PO (10:07)
--- NOTE | 2021-04-23 10:32 | PM.PNPO.1 ---
Subjective Subjective Date Patient Seen: 04/23/21 Time Patient Seen: 10:32 Interval history: Pain is mild. Denies fever or chills. No nausea or vomiting. Exam Vital Signs (past 8 hours): - 04/23/21 03:29 04/23/21 07:32 04/23/21 09:00 Temperature 97.0 F L 96.8 F L Pulse Rate 72 81 70 Respiratory Rate 18 18 16 Blood Pressure 99/64 109/43 L Pulse Oximetry 95 95 94 04/23/21 09:07 04/23/21 09:31 Temperature Pulse Rate 78 Respiratory Rate Blood Pressure 115/61 Pulse Oximetry 94 Oxygen Delivery Method Nasal Cannula Oxygen Flow Rate 6 Narrative Exam Narrative: 81-year-old female resting comfortably in bed in no apparent distress. Left hip dressing is Clean, dry, intact. Sensation grossly intact to light touch bilateral lower extremities. Motor functions intact bilateral lower extremities Objective Labs Result Diagrams: 04/23/21 06:20 04/22/21 05:20 Labs: Laboratory Results - last 24 hr 04/23/21 06:20 Hgb 8.6 L Hct 26.0 L PFSH Medical History Chronic back pain Essential hypertension Hyperlipidemia Surgical History History of appendectomy History of lumbar discectomy Family History Mother Heart attack Father Heart attack Sister ALS (amyotrophic lateral sclerosis) Social History household members: spouse Smoking Status: Former smoker alcohol intake: never Assessment & Plan Post-op Postoperative Procedures: Procedures Operation Date: 04/22/21 14:30 Actual Procedure Side Surgeon p Hip Hemiarthroplasty Left Khoa Muhammad MD Postoperative day: 1 Postoperative status: doing well Postoperative plan narrative: Weight-bearing as tolerated left lower extremity, posterior hip precautions, aspirin 81 mg b.i.d. for 6 weeks Disposition 1-2 days
--- NOTE | 2021-04-23 12:35 | DI.RAD.S_ITS ---
PROCEDURE: XR CHEST 1V INDICATIONS: r/o aspiration pneumonia TECHNIQUE: One view of the chest was acquired. COMPARISON: None. FINDINGS: Surgical changes and devices: None. Lungs and pleura: Ground-glass airspace opacity in the right lung both upper and lower lobes, with central/perihilar predominance. No consolidation. No pleural effusions or pneumothorax. Mediastinum: Mediastinal contours appear normal. Heart size is normal. Bones and chest wall: No suspicious bony lesions. Overlying soft tissues appear unremarkable. IMPRESSION: Ground-glass airspace opacity in the right lung which is likely infectious. Dictated by: Edgardo Patterson M.D. on 04/23/2021 at 13:46 Approved by: Edgardo Patterson M.D. on 04/23/2021 at 13:51
--- NOTE | 2021-04-23 13:35 | PT.IPTN ---
Current Diagnoses Laceration without foreign body of unspecified part of head, initial encounter (04/21/21) Fracture of unspecified part of neck of unspecified femur, initial encounter for closed fracture (04/21/21) Surgery Performed Operation Date: 04/22/21 14:30 Actual Procedures p Hip Hemiarthroplasty(Left) - Khoa Muhammad MD Physical Therapy Treatment Note M2 PT-IP Current Condition Start: 04/23/21 12:14 Freq: NEEDED Status: Active Protocol: Document 04/23/21 10:05 AB (Rec: 04/23/21 12:28 AB [id number]) Physical Therapy Current Condition Current Condition Evaluation Date 04/23/21 Treatment Diagnosis L femoral neck fx s/o hemiarthroplasty; difficulty in walking Onset Date 04/21/21 Precautions Posterior Hip Precautions No Hip Flexion > 90 degrees,No Hip Internal Rotation,No Hip Adduction Weight Bearing Status Weight Bearing Status Weight Bear as Tolerated Allowed Weight Bearing Amount (enter % LLE WBAT or #) (%) M3 PT-IP Subjective Start: 04/23/21 12:14 Freq: NEEDED Status: Active Protocol: Document 04/23/21 13:35 AB (Rec: 04/23/21 17:46 AB [id number]) Subjective Physical Therapy Visit Type Type Treatment Note Visit Start Time 13:35 Visit Stop Time 14:35 Total Visit Minutes 60 Number of GOLD LEAF LAYER Visits 0 Physical Therapy Visit Comments Patient Comments agreeable to do PT Therapy Pain Assessment Pain When Pain Assessed During Mobility Location left hip Scale Used pain scale not stated M4 PT-IP Mobility and Gait Start: 04/23/21 12:14 Freq: NEEDED Status: Active Protocol: Document 04/23/21 13:35 AB (Rec: 04/23/21 17:46 AB [id number]) PT-Transfer Assessment Sit to and From Stand Sit to and from Stand Maximum Assistance,1 Person Assistance,2 Person Assistance ,Use of Upper Extremities Equipment Transfer Assistive Device Gait Belt,Front Wheeled Walker Orthotic/Prosthetic Devices or Brace: No Comments Mobility Comments spouse in room during tx session. pt continues to to be impulsive and with confusion. O2 sat with 4L/min O2 varies from 78% to 93%. pt's O2 sat decreases even when talking and requires cues to take deep breaths and is also a mouth breather and requires instructions to breath through her nose. completed sit to stand max A x 1-2 and max cues. continues to require max cues to maintain hip precaution. LLE tends to internally rotate during sit to stand with PT requiring max A to maintain proper alignment. instructed to sit back down. pt completed sit to stand again max A x 2 and max cues and reminded again regarding LLE positioning prior to mobility. pt ambulated in room max A ~ 30 ft using FWW max cues. pt is very impulsive and unsteady with ambulation. pt sat back on chair. sit<>stand training x 3 reps and max cues provided mod to max A. pt is adamant about going home. educated on safety and stated that if she has to go to a SNF rehab, she prefers to go to [facility] in [place]. set up caregiver training tomorrow with spouse and pt's sister at 10 am. Gait Assessment Gait Gait Assistance Required: Moderate Assistance,Maximum Assistance,1 Person Assist Distance (Feet) 30 Able to Maintain Weight Bearing Status Yes During Gait Assistive Devices Assistive Device Gait Belt,Front Wheeled Walker Orthotic/Prosthetic Devices or Brace: No Gait Deviations General Gait Pattern Antalgic,Decreased Stride Length,Decreased Feet Clearance,Step-to Gait Factors Limiting Gait Function Factors Limiting Gait Function Decreased Activity Tolerance, Decreased Strength,Difficulty Following Directions,Limited Range of Motion,Pain,Poor Balance,Poor Safety Awareness 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,Log Chipper Operator Impaired Gross Range of Motion Lower Extremity ROM Assessment Within Functional Limits Strength Lower Extremity Strength Assessment Left Impaired Hip 3+/5 Knee 4-/5 Coordination Assessment Gross Coordination Gross Coordination WNL Sensation Assessment Sensation Gross Sensation WNL Muscle Tone Muscle Tone WNL Yes M6 PT-IP Treatment Start: 04/23/21 12:14 Freq: NEEDED Status: Active Protocol: Document 04/23/21 13:35 AB (Rec: 04/23/21 17:46 AB [id number]) Physical Therapy Treatment Education Education Provided Precautions,Safety M7 PT-IP Assessment and Plan Start: 04/23/21 12:14 Freq: NEEDED Status: Active Protocol: Document 04/23/21 13:35 AB (Rec: 04/23/21 17:46 AB [id number]) PT Summary Assessment and Plan Potential Rehabilitation Potential Fair Summary Impairments Pain,ROM,Strength,Balance, Coordination,Sensation,Tone, Cognition,Bed Mobility, Transfers,Gait,Activity Tolerance Progress Towards Goals Slow Progress due to Pain,Slow Progress due to Medical Issues,Slow Progress due to Activity Tolerance Assessment Summary pt requiring max A x1-2 with mobility and max cues with all tasks to maintain hip precautions. O2 sat continues to decrease to 78% - 82% with activity despite 4L/min O2 on . pt is adamant about going home and has decrease insight regarding safety and current functional capacity. pt educated regarding safety and what it entails to safely go home. pt stated that she understood and that if she has to go to a SNF rehab, she wants to go to [facility] in [place]. Spouse in room and agreed to do caregiver training tomorrow at 10 am and will see if pt's sister can also come for training. informed pt and spouse that as of this afternoon's PT session, SNF rehab is still the recommendation but will continue to assess progress and also will assess how caregiver training goes tomorrow if pt will be safe enough to go home with spouse to assist. Pt and spouse agreed. will continue to assess progress. Goals Bed Mobility Goal Standby Assistance Transfer Goal Standby Assistance,Front Wheeled Walker Gait Goal Standby Assistance,Front Wheel Walker Gait Distance 150 Other Goals up/down 4 steps 1 rail CGA Days to Meet Goals 10 Frequency of Treatment Frequency Of Treatment Twice a Day Treatment Plan Physical Therapy Treatment Plan Bed Mobility Training,Transfer Training,Gait Training, Therapeutic Exercise,Balance Retraining,Post Op Education, Discharge Planning,Hot or Cold Pack,Neuromuscular Re-ed, Coordination Retraining,Manual Therapy Precautions Posterior Hip Precautions No Hip Flexion > 90 degrees,No Hip Internal Rotation,No Hip Adduction Other Precautions WBAT LLE Recommendations To Nursing Amount of Assist Needed 2 Person Assist Discharge Recommendations PT Discharge Recommendations Home with 16/03 Assist Available,Home Health,SNF Rehab,Home vs SNF Equipment Needed for Home Before FWW Discharge Transportation Needs at Discharge Private Vehicle,Wheelchair/ Cabulance
--- NOTE | 2021-04-23 14:45 | PC.NURSE ---
A&Ox4. VSS. BP was low this morning, 99/64, 115/61 so held BP meds. Pain well controlled with PRN oxycodone and scheduled tylenol. Required reminders to keep leg from turning in or out, 2 person transfer. Got up to chair with PT and sat there for later part of this shift. Saline locked, tolerating oral liquids well. Tele sinus rhythm. Talked with care management this afternoon and agreed that going to a retirement facility would be the best plan for her continued recovery. Call light within reach, bed low.
--- NOTE | 2021-04-23 14:54 | CM.DPNOTE ---
Faxed referral packet to [facility] per Calli and received fax conf. Karen Cali CM Asst.
--- NOTE | 2021-04-23 15:03 | CM.DPC ---
DCP: continued. Case received, EMR reviewed. Noted PT recommendation for snf setting and pt's refusal of same. Obtained an OT eval order and then met with pt and her Nick. Introduced self and role. Pt says My and sister have ganged up on me and convinced me that a rehab stay at the long-term is needed. Also, my PCP Dr. Garrison came here to visit today and also says this is needed. I would like to go to [facility] in [place]. Pt clarifies that she and her live in [place]. [place] is the mailing address. She is familiar with [facility] from a family members admission there in past and her PCP works in [place]. Pt confirms she is fully vaccinated: Pfizer and copy of her cards are placed to scan. These will be faxed to [facility] admissions along with rest of clinical by CLAUDIA Jnoes. Have contacted [facility] facility now at [phone] and spoken to cashier receptionist and then left a detailed vm on the admission line. Duty Manager states there is not a direct admission number. Pt is hopeful that she might be able to go home at d/c but is now planning for snf. She is aware that private pay for a w/c van transport will be likely mode of transport. At this time she is not interested in any local snfs...DCP team to follow for back up snf if needed. PASRR: due to lateness of hour will not start this. Anticipate rapid COVID test will be needed day of d/c. Admission status: INPT: Payer: Medicare and [employer] D. was just alerted by Karen that the vax cards do not have pt's name on them. Both vaxs were given at the [facility] dept. Karen is updating pt and advising her or her to call the [facility] and obtain a correct version of the vaccine status.
--- NOTE | 2021-04-23 15:54 | OT.IP.EVAL ---
Current Diagnoses Laceration without foreign body of unspecified part of head, initial encounter (04/21/21) Fracture of unspecified part of neck of unspecified femur, initial encounter for closed fracture (04/21/21) Surgery Performed Operation Date: 04/22/21 14:30 Actual Procedures p Hip Hemiarthroplasty(Left) - Khoa Muhammad MD Past Medical History (Last Reviewed 04/23/21 @ 10:33 by Joey Velasco PA-C) Chronic back pain Essential hypertension History of appendectomy History of lumbar discectomy Hyperlipidemia Surgical History (Last Reviewed 04/23/21 @ 10:33 by Joey Velasco PA-C) History of appendectomy History of lumbar discectomy Occupational Therapy Inpatient Evaluation/Re-Eval M1 PT/OT-IP Prior Functional Status Start: 04/23/21 12:14 Freq: NEEDED Status: Active Protocol: Document 04/23/21 15:12 [facility] (Rec: 04/23/21 16:47 [facility] [id number]) Medical Review Prior Functional Status Medical History Reviewed Yes Communication able to make needs known; easily distracted and very impulsive Mobility and Gait stated that she is independent with all mobilities and ambulation without AD; has h/o falls Activities of Daily Living and IADL's Pt states prior completely independent for all ADL's, IADl's and took care of the horses and dogs on their property. Social History Household Members spouse Living Arrangements House Number of Floors (Floors) One Floor Number of Stairs To Enter/Railing? 4 steps wide 2 rails ( can only hold on to one rail at a time) Home Environment High Toilet,Walk in Shower,Tub /Shower Additional Social History Comment stated that her sister lives around her property and can assist her more than spouse can. M2 OT-IP Current Condition Start: 04/23/21 16:27 Freq: Status: Active Protocol: Document 04/23/21 15:12 [facility] (Rec: 04/23/21 16:47 [facility] [id number]) Occupational Therapy Current Condition Current Condition Evaluation Date 04/23/21 Treatment Diagnosis Left femoral neck fx, s/p LTHA , decreased mobility Diagnosis Onset Date 04/21/21 Post Operative Precautions Posterior Hip Precautions No Hip Flexion > 90 degrees,No Hip Internal Rotation,No Hip Adduction M3 OT- IP Subjective and Pain Start: 04/23/21 16:27 Freq: Status: Active Protocol: Document 04/23/21 15:12 [facility] (Rec: 04/23/21 16:47 [facility] [id number]) OT- Subjective Occupational Therapy Visit Type Type Initial Evaluation Visit Start Time 15:12 Visit Stop Time 15:54 Total Visit Minutes 42 Occupational Therapy Visit Comments Patient Comments Pt agreed to work with OT, pt' s in the room. Patient/Caregiver Goals To go home. OT Pain Assessment Pain When Pain Assessed At Rest Pain Present Pain Present Denied Pain M4 OT- IP ADL's Start: 04/23/21 16:27 Freq: Status: Active Protocol: Document 04/23/21 15:12 [facility] (Rec: 04/23/21 16:47 [facility] [id number]) OT [id number] Comments OT Self-Feeding Comments NOt at meal time, no issues noted. OT ADL-Grooming Comments OT Grooming Comments NOt performed. OT ADL-Dressing General Eval Lower Body Dressing Ability Maximum Assistance Comments OT Dressing Comments Initiated education of LB dressing equipment so pt able to follow her hip precautions for dressing needs. Pt insists that her will assist her. OT ADL-Toileting General Evaluation Toileting Ability Total Assistance Comments OT Toileting Comments Mendoza in place. OT ADL-Bathing Comments OT Bathing Comments Sponge bath more appropriate at this time. M5 OT- IP IADL's Start: 04/23/21 16:27 Freq: Status: Active Protocol: Document 04/23/21 15:12 [facility] (Rec: 04/23/21 16:47 [facility] [id number]) OT-Instrumental Activities of Daily Living Home Safety Awareness Awareness of Need for Assistance at Home Decreased Awareness Ability to Problem Solve Emergency Able to Problem Solve Situations Medication Management Medication Management Comments Pt a little confused at this time and would benefit from having assist. Money Management Money Management Comments Pt a little confused at this time and would benefit from having assist. Meal Preparation Meal Preparation Comments Pt would benefit form assist at this time. Lead Case Manager Lead Case Manager Comments Pt would benefit form assist at this time. M6 OT- IP Functional Cognition Start: 04/23/21 16:27 Freq: Status: Active Protocol: Document 04/23/21 15:12 [facility] (Rec: 04/23/21 16:47 [facility] [id number]) Cognitive Factors Limiting Selfcare Function Cognitive Ability Level of Alertness Alert,Confusional State Patient Orientation Name,Age,Birthday,Month,Date, Year,Day of Week,Place, Situation Attention Span Ability Capable of Focused Attention, Capable of Sustained Attention Ability to Follow Commands Able to Follow One Step Commands with Increased Time, Able to Follow One Step Commands with Repetition Memory Description Short Term Impaired Safety Awareness Decreased Recall of Precautions,Decreased Ability to Apply Precautions, Underestimates Need for Assistance Problem Solving Ability Unable to Identify Errors, Needs Assist to Identify Solutions Cognitive Tests SLUMS Pt scored 19/30 which implies cognitive deficits. Pt feels that she is not thinking as well and especially not able to recall information well at this time. Pt did hit her head during her fall. Pt able to say 13 animals in one minute, not able to recall any of the 5 objects after time passed, pt not able to state 4 digit number backwards, pt not able to write in correctly the numbers of the clock. Cognitive Comments Cognitive Assessment Comments Pt very impulsive, easily distracted and not able to incorporate her hip precautions during mobility needs. Pt needs to be redirected often. Nursing aid and OT agreed that pt to have a chair alarm. OT- Vision and Hearing OT- Vision Assessment Vision Assessment Comments Pt has hearing aids but does not wear them. M7 OT- IP Mobility and Balance Start: 04/23/21 16:27 Freq: Status: Active Protocol: Document 04/23/21 15:12 [facility] (Rec: 04/23/21 16:47 [facility] [id number]) OT-Transfer Assessment Sit to and From Stand Sit to and from Stand Maximum Assistance,1 Person Assistance Comments Mobility Comments Pt able to assist to scoot herself forwards in the recliner with her arms on the armrests and needing MAX AX 1 to help come to stand. Pt needing continuous cues for LLE management to follow her hip precautions. Place foam wedge back in between her legs after working with pt. BP 128 /65 o2 on 4l fluctuate greatly and cued pt to deep breathing and to also use the spirometer . OT- Gait Assessment Comments Gait Ability Comments Not at this time. OT- Balance Assessment Sitting Balance and Reactions Static Sitting Balance Ability Good Dynamic Sitting Balance Ability Good Standing Balance and Reactions Static Standing Balance Ability Poor M8 OT- IP Objective Assessments Start: 04/23/21 16:27 Freq: Status: Active Protocol: Document 04/23/21 15:12 [facility] (Rec: 04/23/21 16:47 [facility] [id number]) OT Gross Range of Motion Upper Extremity Range of Motion Assessment Within Functional Limits OT Strength Upper Extremity Strength Assessment Within Functional Limits OT- Coordination Assessment Comments Coordination Comments Arthritic changes in her hands . M9 OT- IP Assessment and Plan Start: 04/23/21 16:27 Freq: Status: Active Protocol: Document 04/23/21 15:12 [facility] (Rec: 04/23/21 16:47 [facility] [id number]) OT Summary Assessment and Plan Potential Rehabilitation Potential Good Analytic Complexity at Evaluation Moderate Summary OT Impairments Pain,Balance,Coordination, Functional Cognition, Functional Mobility,Grooming, Dressing,Toileting,Bathing, Toilet Transfers,Shower Transfers,Activity Tolerance Progress Towards Goals Slow Progress due to Pain,Slow Progress due to Medical Issues,Slow Progress due to Activity Tolerance,Slow Progress due to Cognition Assessment Summary Pt MOD complexity and main barriers are steps, pain , decreased balance and having difficulty with her cognition -especially for short term memory at this time. Pt did fall and hit her head and also states has not slept well, continue to assess her cognition. At this time, pt would benefit from skilled rehab prior to going home. Pt 's appears distracted and having to ask repeatedly of what equipment that he should get and what he needs to do for her at home. Pt's current level too great for pt' s family to assist at this time. Goals Self-Feeding Goal Independent Grooming Goal Independent Dressing Goal Independent Toileting Goal Independent Bathing Goal Independent Toilet Transfer Goal Independent Shower Transfer Goal Independent Patient/Caregiver Education Goal Demonstrate Post-Op Precautions,Caregiver Independent Assisting Patient Days to Meet Goals 30 Frequency of Treatment Frequency Of Treatment Once a Day Treatment Plan OT Treatment Plan ADL Training,Patient/Family Education,Discharge Planning Other Treatment Recommendations and Next Transfer to [facility] with MODA X2. Treatment Focus Discharge Recommendations OT Discharge Recommendations SNF Rehab Transportation Needs at Discharge Wheelchair/Cabulance
--- NOTE | 2021-04-23 18:31 | P.PN_ITS ---
Subjective Subjective Interval history: Patient is a 81-year-old female who is status post left hip cemented hemiarthroplasty with cerclage cable. Patient sustained a displaced intracapsular femoral neck fracture. Following her procedure the patient had an episode of hypoxemia. Chest x-ray confirmed new right ground-glass opacities consistent with probable aspiration pneumonitis. The patient remains hypoxic. She is on 4 L of oxygen. She has no cough. She continues to have some pain. But otherwise appears comfortable Exam Vital Signs (past 8 hours): - 04/23/21 11:53 04/23/21 12:50 04/23/21 13:00 Temperature 96.9 F L Pulse Rate 86 Respiratory Rate 16 Blood Pressure 129/70 Pulse Oximetry 92 95 95 04/23/21 15:20 Temperature 97.4 F L Pulse Rate 92 H Respiratory Rate 18 Blood Pressure 128/65 Pulse Oximetry 95 Oxygen Delivery Method Nasal Cannula Oxygen Flow Rate 4 Narrative Exam Narrative: Patient is a 81-year-old female resting comfortably in no obvious distress, she is currently on 4 L of oxygen Resp Other: Lungs: Decreased breath sounds, scattered crackles offer the right lung, left lung clear Cardio Other: Cardiac exam: Regular rate and rhythm normal S1-S2 GI Other: Abdomen: Soft nontender nondistended Extrem Other: Extremities: Patient with a wedge pillow in place Objective Labs Result Diagrams: 04/23/21 06:20 04/22/21 05:20 Labs: Laboratory Results - last 24 hr 04/23/21 06:20 Hgb 8.6 L Hct 26.0 L PFSH Medical History Chronic back pain Essential hypertension Hyperlipidemia Surgical History History of appendectomy History of lumbar discectomy Family History Mother Heart attack Father Heart attack Sister ALS (amyotrophic lateral sclerosis) Social History household members: spouse Smoking Status: Former smoker alcohol intake: never Assessment & Plan Assessment & Plan narrative: 1. Probable aspiration pneumonitis/acute hypoxic respiratory failure -patient developed a respiratory event requiring high-flow oxygen last ev ening, chest x-ray confirms a right sided ground-glass opacities consistent with aspiration pneumonitis -patient with history of smoking, however she quit 15 years ago and currently is not on oxygen -will start IV Unasyn 3 g q.8 hours -will continue oxygen and incentive spirometry -will obtain procalcitonin, if the patient's hypoxia continues consider CT angio of the chest for further evaluation 2. Status post left hip cemented hemiarthroplasty -patient with left hip fracture following a fall, likely related to underlying osteoporosis 3. Hyperlipidemia -continue statin 4. Hypertension -continue metoprolol -will hold chlorthalidone at this time 5. DVT prophylaxis -per surgery
[2021-04-23] MEDS: AMPICILLIN/SULBACTAM 3 GM 3 GM in SODIUM CHLORIDE 0.9% 100 ML IV (19:33)
[2021-04-23] MEDS: SENNOSIDES 8.6 MG TABLET 17.2 MG PO (20:29)
[2021-04-24] VITALS (14 sets, daily range): BP systolic 130–155; BP diastolic 61–96; PULSE 60–98; RESP 16–19; TEMP 36.1–36.6; O2SAT 92–99
[2021-04-24] MEDS: OXYCODONE IR 5 MG TABLET PO ×2 (00:24→09:58)
[2021-04-24] MEDS: AMPICILLIN/SULBACTAM 3 GM 3 GM in SODIUM CHLORIDE 0.9% 100 ML IV ×3 (02:31→19:08)
--- NOTE | 2021-04-24 08:26 | CM.DPC ---
Addendum entered by Jessica Arnold R.N. 04/24/21 15:41: Spoke to , Nick. Asked him about vaccination cards. Stated, he has his, she should have hers in her wallet. Asked him to check again, will check again with patient. Names need to be written on cards. Let him know that cards will be copied to ensure that she will not need to be isolated, and they can have visitors. Teresa at [facility] called, gave her social security number. She will need rapid COVID, and will need to know size of sanchez if she discharges with one. Will need vaccine cards, or patient will have to be quarantined for 14 days. Addendum entered by Jessica Arnold R.N. 04/24/21 12:34: Spoke to patient. Her and friend were recently here for caregiver training. had informed nurse, she will need to go to long-term before she goes home, will not be able to manage right away. Patient is aware that she will need long-term, and is willing to go. Asked her about a second choice, in case [facility] does not have beds available. She indicated that she would rather go to [facility], it's closer to home, if possible, and can try other facilities. Asked her for her social security number so this can be given to [facility]. She indicated, she can't remember it, does not have her card in her wallet, but will call her . has not yet completed vaccine cards. Went ahead and [facility], message left for Tiara in admissions. [facility], left message with Molly Owusu. Did speak to Grecia at [facility]. She stated to go ahead and fax over referral. Her fax number is: [phone]. Will send it now. Addendum entered by Jessica Arnold R.N. 04/24/21 10:31: Spoke to Teresa in admissions at [facility]. She indicated that they have 2 beds left,, stated, should be able to accept, as long as the beds don't get used up. She did inquire if patient will be on IV ABO at discharge, which is undetermined, and if she will go with sanchez, which is also undetermined. Do not have her social security number as of yet. At this time, it is noted that patient has pneumonia, and is currently on oxygen, so not ready for discharge today. Original Note: DCP Cont: Spoke to Teresa at [facility] in [facility]. Gave her the update on patient. She mentioned that she received the voice mail on her phone, but didn't receive the referral. She is asking to have the referral faxed to an alternate number. The fax number is: [phone]. Gave the number to assistant Karen, and she will fax it to her. Let Teresa know that this is just for rehab for hip fracture, no other needs needed. P: DCP to continue to follow. Will call Teresa later this morning to see if they can accept. Jessica Arnold RN/District Commercial Superintendent
[2021-04-24] MEDS: SODIUM CHLORIDE 0.9% FLUSH 10 ML IV ×2 (09:55→22:46)
[2021-04-24] MEDS: ACETAMINOPHEN 325 MG TABLET 650 MG PO ×2 (09:57→22:43)
[2021-04-24] MEDS: DOCUSATE 100 MG CAPSULE PO ×2 (09:58→22:43)
[2021-04-24] MEDS: METOPROLOL ER 50 MG TABLET 100 MG PO (09:58)
[2021-04-24] MEDS: ASPIRIN EC 81 MG TABLET PO ×2 (09:58→22:43)
--- NOTE | 2021-04-24 10:35 | PT.IPTN ---
Current Diagnoses Laceration without foreign body of unspecified part of head, initial encounter (04/21/21) Fracture of unspecified part of neck of unspecified femur, initial encounter for closed fracture (04/21/21) Surgery Performed Operation Date: 04/22/21 14:30 Actual Procedures p Hip Hemiarthroplasty(Left) - Khoa Muhammad MD Physical Therapy Treatment Note M2 PT-IP Current Condition Start: 04/23/21 12:14 Freq: NEEDED Status: Active Protocol: Document 04/23/21 10:05 AB (Rec: 04/23/21 12:28 AB [id number]) Physical Therapy Current Condition Current Condition Evaluation Date 04/23/21 Treatment Diagnosis L femoral neck fx s/o hemiarthroplasty; difficulty in walking Onset Date 04/21/21 Precautions Posterior Hip Precautions No Hip Flexion > 90 degrees,No Hip Internal Rotation,No Hip Adduction Weight Bearing Status Weight Bearing Status Weight Bear as Tolerated Allowed Weight Bearing Amount (enter % LLE WBAT or #) (%) M3 PT-IP Subjective Start: 04/23/21 12:14 Freq: NEEDED Status: Active Protocol: Document 04/24/21 10:35 AB (Rec: 04/24/21 14:48 AB [id number]) Subjective Physical Therapy Visit Type Type Treatment Note Visit Start Time 10:35 Visit Stop Time 11:35 Total Visit Minutes 60 Number of COMPENSATION INTERN Visits 0 Physical Therapy Visit Comments Patient Comments agreeable to do PT; spouse and sister just came in for caregiver training M4 PT-IP Mobility and Gait Start: 04/23/21 12:14 Freq: NEEDED Status: Active Protocol: Document 04/24/21 10:35 AB (Rec: 04/24/21 14:48 AB [id number]) PT-Bed Mobility Assessment Supine to Sit Supine to Sit Minimal Assistance PT-Transfer Assessment Sit to and From Stand Sit to and from Stand Maximum Assistance,1 Person Assistance,Use of Upper Extremities Equipment Transfer Assistive Device Gait Belt,Front Wheeled Walker Orthotic/Prosthetic Devices or Brace: No Transfers Transfer Destination Chair Transfer Technique Stand Step Pivot Transfer Ability Level of Assist Maximum Assistance,1 Person Assistance,Use of Upper Extremities Comments Mobility Comments pt supine in bed. caregiver training conducted. spouse and sister in room. pt completed supine to sit min A and cues. educated spouse and sister on how to assist pt. educated on safety belt use and how to assist pt. educated on pt's hip precautions. spouse emile safety belt but requires cues to complete task . pt's sister instructed spouse. has to repeat x 3 to be able to put safety belt on pt. assisted pt with sit to stand but unable to cue pt regarding postioning to maintain hip precautions. PT has to cue pt and instruct as spouse is not instructed pt. repeated task and informed spouse that he has to instruct pt to maintain hip precautions but spouse was not able to provide instructions. pt transferred to chair using FWW max A and cues. O2 sat checked 87%, NM 114. instructed pt to take deep breaths. needed ~ 30 sec to get up to 90% and NM at 108- 109 at rest. pt continues to be impulsive. spouse again assisted pt with sit to stand from the chair and continues to not cue pt. pt ambulated in room with spouse assisting ~ 10 ft using FWW max A and has to sit down. (+) SOB. O2 sat ~ 83% and instructed to deep breathing. O2 sat increased to 90% after ~ 30 sec. educated pt and family regarding safety and safe d/c plan and currently, pt is unable to tolerate much activity to be safe to go home . informed them regarding SNF rehab recommendation. spouse tried to cue pt regarding hip precautions but unable to provide correct precaution and told pt to turn her leg inward during turning . educated spouse regarding importance and providing pt with correct instructions. seems like spouse also has cognitive issues and will not be able to safety assist pt. caregiver training conducted with pt's sister assisting pt. sister was able to put safety belt on pt and assisted pt again with ambulation in room using FWW ~ 10 ft. sister was able to instruct pt but pt unable to tolerate any more activity. sat on chair and rested (+) SOB. O2 sat 87 -88% at 2L/min O2. positioned pt on chair. call light and table placed within reach. Gait Assessment Gait Gait Assistance Required: Maximum Assistance,1 Person Assist Distance (Feet) 10 Able to Maintain Weight Bearing Status Yes During Gait Assistive Devices Assistive Device Gait Belt,Front Wheeled Walker Orthotic/Prosthetic Devices or Brace: No Gait Deviations General Gait Pattern Antalgic,Decreased Stride Length,Decreased Feet Clearance,Step-to Gait Factors Limiting Gait Function Factors Limiting Gait Function Decreased Activity Tolerance, Decreased Strength,Difficulty Following Directions,Limited Range of Motion,Pain,Poor Balance,Poor Safety Awareness, Respiratory Distress 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,Senior Living Impaired Gross Range of Motion Lower Extremity ROM Assessment Within Functional Limits Strength Lower Extremity Strength Assessment Left Impaired Hip 3+/5 Knee 4-/5 Coordination Assessment Gross Coordination Gross Coordination WNL Sensation Assessment Sensation Gross Sensation WNL Muscle Tone Muscle Tone WNL Yes M6 PT-IP Treatment Start: 04/23/21 12:14 Freq: NEEDED Status: Active Protocol: Document 04/24/21 10:35 AB (Rec: 04/24/21 14:48 AB [id number]) Physical Therapy Treatment Education Education Provided Safety Brace Education [place],Patient, Caregiver Other Treatments Other Treatment Performed educated pt and family on how to position and emile abductor pillow M7 PT-IP Assessment and Plan Start: 04/23/21 12:14 Freq: NEEDED Status: Active Protocol: Document 04/24/21 10:35 AB (Rec: 04/24/21 14:48 AB [id number]) PT Summary Assessment and Plan Potential Rehabilitation Potential Fair Summary Impairments Pain,ROM,Strength,Balance, Coordination,Sensation,Tone, Cognition,Bed Mobility, Transfers,Gait,Activity Tolerance Progress Towards Goals Slow Progress due to Medical Issues,Slow Progress due to Activity Tolerance,Slow Progress - Other Assessment Summary caregiver training conducted but further training is required. spouse seems to have cognitive issues as well and unable to provide instructions or give correct instructions for pt for hip precautions adherence. pt also has decrease activity tolerance affecting mobiltiy and independence with decrease O2 sat to ~ 83% with mobility . pt will require SNF rehab at this time. If pt goes home, she will need 24/ care available and HHPT. Goals Bed Mobility Goal Standby Assistance Transfer Goal Standby Assistance,Front Wheeled Walker Gait Goal Standby Assistance,Front Wheel Walker Gait Distance 150 Other Goals up/down 4 steps 1 rail CGA Days to Meet Goals 10 Frequency of Treatment Frequency Of Treatment Twice a Day Treatment Plan Physical Therapy Treatment Plan Bed Mobility Training,Transfer Training,Gait Training, Therapeutic Exercise,Balance Retraining,Post Op Education, Discharge Planning,Hot or Cold Pack,Neuromuscular Re-ed, Coordination Retraining,Manual Therapy Precautions Posterior Hip Precautions No Hip Flexion > 90 degrees,No Hip Internal Rotation,No Hip Adduction Other Precautions WBAT LLE Recommendations To Nursing Amount of Assist Needed 1 Person Assist Discharge Recommendations PT Discharge Recommendations SNF Rehab Transportation Needs at Discharge Private Vehicle,Wheelchair/ Cabulance
--- NOTE | 2021-04-24 13:20 | OT.IP.TRT ---
Current Diagnoses Laceration without foreign body of unspecified part of head, initial encounter (04/21/21) Fracture of unspecified part of neck of unspecified femur, initial encounter for closed fracture (04/21/21) Surgery Performed Operation Date: 04/22/21 14:30 Actual Procedures p Hip Hemiarthroplasty(Left) - Khoa Muhammad MD Occupational Therapy Treatment Note M2 OT-IP Current Condition Start: 04/23/21 16:27 Freq: Status: Active Protocol: Document 04/23/21 15:12 [facility] (Rec: 04/23/21 16:47 [facility] [id number]) Occupational Therapy Current Condition Current Condition Evaluation Date 04/23/21 Treatment Diagnosis Left femoral neck fx, s/p LTHA , decreased mobility Diagnosis Onset Date 04/21/21 Post Operative Precautions Posterior Hip Precautions No Hip Flexion > 90 degrees,No Hip Internal Rotation,No Hip Adduction M3 OT- IP Subjective and Pain Start: 04/23/21 16:27 Freq: Status: Active Protocol: Document 04/24/21 13:23 [facility] (Rec: 04/24/21 13:39 [facility] [id number]) OT- Subjective Occupational Therapy Visit Type Type Treatment Note Visit Start Time 12:55 Visit Stop Time 13:20 Total Visit Minutes 25 Occupational Therapy Visit Comments Patient Comments Pt in the recliner and noted blood by IV site, therefore notified pt's nurse. In addition note pt coughing on water and while eating her food, therefore spoke to nursing of possible FIELD TECHNICAL SUPPORT CONSULTANT eval. Attempted to call Hospitalist but unable to reach or not able to leave a message. Hospitalist was notified of FIELD TECHNICAL SUPPORT CONSULTANT eval request. Patient/Caregiver Goals Pt now realizes it is best for her to go to skilled rehab prior to going home. OT Pain Assessment Pain When Pain Assessed At Rest Pain Present Pain Present Denied Pain M6 OT- IP Functional Cognition Start: 04/23/21 16:27 Freq: Status: Active Protocol: Document 04/24/21 13:23 [facility] (Rec: 04/24/21 13:39 [facility] [id number]) Cognitive Factors Limiting Selfcare Function Cognitive Ability Level of Alertness Alert Patient Orientation Name,Age,Birthday,Month,Date, Year,Day of Week,Place, Situation Attention Span Ability Capable of Focused Attention, Capable of Sustained Attention Ability to Follow Commands Able to Follow Multi-Step Commands Memory Description [facility] Impaired Safety Awareness Decreased Recall of Precautions Executive Function Ability Unable to Filter Distractions, Unable to Remember Details Cognitive Tests SLUMS Re-tested pt and today score improved to 26/30 and still having a little difficulty with short term memory needs. Pt able to recall 2/5 objects after time passed. Pt able to recall 13 animals in one minute. Pt still feels that she is not remembering as well as she usually does. Pt states that her to bring in her hear aids which may also help for cognitive abilities. Cognitive Comments Cognitive Assessment Comments Pt better able to focus better today and realizes that she rushes through quickly and need to pay attention more. Pt is well aware that she has to be able to recall and incorporate her hip precautions. OT- Vision and Hearing OT- Vision Assessment Vision Assessment Comments Pt states to have her bring in her hearing aids. Freq: Status: Active Protocol: Document 04/23/21 15:12 [facility] (Rec: 04/23/21 16:47 [facility] [id number]) OT Gross Range of Motion Upper Extremity Range of Motion Assessment Within Functional Limits OT Strength Upper Extremity Strength Assessment Within Functional Limits OT- Coordination Assessment Comments Coordination Comments Arthritic changes in her hands . M9 OT- IP Assessment and Plan Start: 04/23/21 16:27 Freq: Status: Active Protocol: Document 04/24/21 13:23 [facility] (Rec: 04/24/21 13:39 [facility] [id number]) OT Summary Assessment and Plan Potential Rehabilitation Potential Good Analytic Complexity at Evaluation Moderate Summary OT Impairments Pain,Balance,Coordination, Functional Cognition, Functional Mobility,Grooming, Dressing,Toileting,Bathing, Toilet Transfers,Shower Transfers,Activity Tolerance Progress Towards Goals Slow Progress due to Medical Issues Assessment Summary Pt having trouble swallowing when drinking water and also when trying to eat her celery. Pt states just has not had an appetite and has been coughing. Nursing notifed and hospitalist was notified of request. Pt and family had caregiver training with PT in the AM and realize that it would be best for the pt to go to skilled rehab before coming home. Pt to go to skilled rehab when medically stable. Goals Self-Feeding Goal Independent Grooming Goal Independent Dressing Goal Independent Toileting Goal Independent Bathing Goal Independent Toilet Transfer Goal Independent Shower Transfer Goal Independent Patient/Caregiver Education Goal Demonstrate Post-Op Precautions,Caregiver Independent Assisting Patient Days to Meet Goals 29 Frequency of Treatment Frequency Of Treatment Once a Day Treatment Plan OT Treatment Plan ADL Training,Patient/Family Education,Discharge Planning Other Treatment Recommendations and Next Transfer to [facility] with MODA X2. Treatment Focus Discharge Recommendations OT Discharge Recommendations SNF Rehab Transportation Needs at Discharge Wheelchair/Cabulance
--- NOTE | 2021-04-24 15:25 | P.PN_ITS ---
Subjective Subjective Date Patient Seen: 04/24/21 Time Patient Seen: 15:25 Interval history: Patient is complaining of mild left hip pain. She denies nausea or vomiting. Denies fevers, chills, night sweats. Overall she is doing well. She is working with physical therapy. The plan is to get her discharged to SNF when a bed becomes available. Exam Vital Signs (past 8 hours): - 04/24/21 07:30 04/24/21 08:43 04/24/21 08:44 Temperature Pulse Rate Respiratory Rate Blood Pressure Pulse Oximetry 92 92 92 04/24/21 11:00 04/24/21 12:22 Temperature 97 F L Pulse Rate 60 Respiratory Rate 19 Blood Pressure 152/96 H Pulse Oximetry 92 92 Oxygen Delivery Method Nasal Cannula Oxygen Flow Rate 1 Narrative Exam Narrative: Pleasant 81-year-old female, resting comfortably in her chair, no acute distress. Bilateral lower extremities motor functions are intact. Bilateral lower extremity sensation is intact to light touch. Calves are soft, nontender palpation and SCDs are on and in place. Her skin is warm and dry bilaterally. Incision demonstrates sin has serosanguineous drainage which is approximately half of the dressing. No surrounding erythema Objective Labs Result Diagrams: 04/23/21 06:20 04/22/21 05:20 [facility] Medical History Chronic back pain Essential hypertension Hyperlipidemia Surgical History History of appendectomy History of lumbar discectomy Family History Mother Heart attack Father Heart attack Sister ALS (amyotrophic lateral sclerosis) Social History household members: spouse Smoking Status: Former smoker alcohol intake: never Assessment & Plan Post-op Postoperative Procedures: Procedures Operation Date: 04/22/21 14:30 Actual Procedure Side Surgeon p Hip Hemiarthroplasty Left Khoa Muhammad MD Postoperative day: 2 Postoperative status narrative: Patient is progressing as expected status post left hip hemiarthroplasty Postoperative plan narrative: Postoperative day: 2 Postoperative status: doing well Postoperative plan narrative: Weight-bearing as tolerated left lower extremity, posterior hip precautions, aspirin 81 mg b.i.d. for 6 weeks Disposition 1-2 days to SNF when cleared by PT and hospitalist
--- NOTE | 2021-04-24 16:45 | PT.IPTN ---
Current Diagnoses Laceration without foreign body of unspecified part of head, initial encounter (04/21/21) Fracture of unspecified part of neck of unspecified femur, initial encounter for closed fracture (04/21/21) Surgery Performed Operation Date: 04/22/21 14:30 Actual Procedures p Hip Hemiarthroplasty(Left) - Khoa Muhammad MD Physical Therapy Treatment Note M2 PT-IP Current Condition Start: 04/23/21 12:14 Freq: NEEDED Status: Active Protocol: Document 04/23/21 10:05 AB (Rec: 04/23/21 12:28 AB [id number]) Physical Therapy Current Condition Current Condition Evaluation Date 04/23/21 Treatment Diagnosis L femoral neck fx s/o hemiarthroplasty; difficulty in walking Onset Date 04/21/21 Precautions Posterior Hip Precautions No Hip Flexion > 90 degrees,No Hip Internal Rotation,No Hip Adduction Weight Bearing Status Weight Bearing Status Weight Bear as Tolerated Allowed Weight Bearing Amount (enter % LLE WBAT or #) (%) M3 PT-IP Subjective Start: 04/23/21 12:14 Freq: NEEDED Status: Active Protocol: Document 04/24/21 16:45 AB (Rec: 04/24/21 17:45 AB [id number]) Subjective Physical Therapy Visit Type Type Treatment Note Visit Start Time 16:45 Visit Stop Time 17:15 Total Visit Minutes 30 Number of ORGANIC LAB WORKER Visits 0 Physical Therapy Visit Comments Patient Comments agreeable to do PT Therapy Pain Assessment Pain When Pain Assessed During Mobility Location left hip Scale Used pain scale not stated M4 PT-IP Mobility and Gait Start: 04/23/21 12:14 Freq: NEEDED Status: Active Protocol: Document 04/24/21 16:45 AB (Rec: 04/24/21 17:45 AB [id number]) PT-Transfer Assessment Sit to and From Stand Sit to and from Stand Moderate Assistance,1 Person Assistance,Use of Upper Extremities Equipment Transfer Assistive Device Gait Belt,Front Wheeled Walker Orthotic/Prosthetic Devices or Brace: No Comments Mobility Comments pt sitting on chair. O2 sat with 3L/min O2 at 93-95%. agreed to do PT. completed sit to stand mod A with max cues. required step by step instructions for positioning of LE to adhere to hip precautions and for safety techniques. pt ambulated mod A ~ 15 ft using FWW. presents with unsteady gait with decrease step length and (+) SOB needing to sit down to rest. cued for deep breathing . max cues for sitting down to EOB mod A. O2 sat checked: 93%. HR 108. pt rested. completed ambulation back to chair mod A and max cues. positioned on chair and set up for dinner. chair alarm on. call light within reach. O2 sat with O2 on at end of tx session: 96%. Gait Assessment Gait Gait Assistance Required: Moderate Assistance,1 Person Assist Distance (Feet) 15 Able to Maintain Weight Bearing Status Yes During Gait Assistive Devices Assistive Device Gait Belt,Front Wheeled Walker Orthotic/Prosthetic Devices or Brace: No Gait Deviations General Gait Pattern Antalgic,Decreased Stride Length,Decreased Feet Clearance,Step-to Gait Factors Limiting Gait Function Factors Limiting Gait Function Decreased Activity Tolerance, Decreased Strength,Difficulty Following Directions,Limited Range of Motion,Pain,Poor Balance,Poor Safety Awareness, Respiratory Distress 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,Longterm Impaired Gross Range of Motion Lower Extremity ROM Assessment Within Functional Limits Strength Lower Extremity Strength Assessment Left Impaired Hip 3+/5 Knee 4-/5 Coordination Assessment Gross Coordination Gross Coordination WNL Sensation Assessment Sensation Gross Sensation WNL Muscle Tone Muscle Tone WNL Yes M6 PT-IP Treatment Start: 04/23/21 12:14 Freq: NEEDED Status: Active Protocol: Document 04/24/21 16:45 AB (Rec: 04/24/21 17:45 AB [id number]) Physical Therapy Treatment Education Education Provided Precautions,Safety M7 PT-IP Assessment and Plan Start: 04/23/21 12:14 Freq: NEEDED Status: Active Protocol: Document 04/24/21 16:45 AB (Rec: 04/24/21 17:45 AB [id number]) PT Summary Assessment and Plan Potential Rehabilitation Potential Fair Summary Impairments Pain,ROM,Strength,Balance, Coordination,Sensation,Tone, Cognition,Bed Mobility, Transfers,Gait,Activity Tolerance Progress Towards Goals Slow Progress due to Medical Issues,Slow Progress due to Activity Tolerance,Slow Progress - Other Assessment Summary pt requiring mod A with transfers and ambulation using FWW but continues to have decrease activity tolerance with (+) SOB with mobility and only able to ambulate ~ 15 ft and then needing to rest. pt more agreeable to go to SNF rehab. Goals Bed Mobility Goal Standby Assistance Transfer Goal Standby Assistance,Front Wheeled Walker Gait Goal Standby Assistance,Front Wheel Walker Gait Distance 150 Other Goals up/down 4 steps 1 rail CGA Days to Meet Goals 10 Frequency of Treatment Frequency Of Treatment Twice a Day Treatment Plan Physical Therapy Treatment Plan Bed Mobility Training,Transfer Training,Gait Training, Therapeutic Exercise,Balance Retraining,Post Op Education, Discharge Planning,Hot or Cold Pack,Neuromuscular Re-ed, Coordination Retraining,Manual Therapy Precautions Posterior Hip Precautions No Hip Flexion > 90 degrees,No Hip Internal Rotation,No Hip Adduction Other Precautions WBAT LLE Recommendations To Nursing Amount of Assist Needed 1 Person Assist Discharge Recommendations PT Discharge Recommendations SNF Rehab Transportation Needs at Discharge Private Vehicle,Wheelchair/ Cabulance
--- NOTE | 2021-04-24 17:46 | ST.IPCSEOM ---
Visit Care Team Role Provider Type Dean Garrison MD Primary Care Provider Non-Staff Specialty: Family Practice Address: [address], [address], [place], [address] Email: Belen Gonzalez MD Other Providers Physician Specialty: Orthopedics Address: [address] [place] [address], [place], [address] Email: [email or web address] Admit Provider Physician Attending Provider Referring Provider Specialty: Medical Address: [address] [place] [address], [id number] Email: Current Diagnoses Laceration without foreign body of unspecified part of head, initial encounter (04/21/21) Fracture of unspecified part of neck of unspecified femur, initial encounter for closed fracture (04/21/21) Past Medical History (Last Reviewed 04/24/21 @ 15:27 by Roya Proctor PA-C) Chronic back pain (Medical) Essential hypertension (Medical) History of appendectomy (Medical) History of lumbar discectomy (Medical) Hyperlipidemia (Medical) Speech-Language Pathology Swallow Evaluation [employer] Clinical Swallow Evaluation Start: 04/24/21 16:57 Freq: Status: Active Protocol: Document 04/24/21 16:57 LNK (Rec: 04/24/21 17:46 LNK [id number]) Clinical Swallow Evaluation Session Time Visit Start Time 15:40 Visit Stop Time 16:40 Total Visit Minutes [address] Dickson Reason for Referral difficulty swallowing Visit Type Note Type Initial evaluation Next Note Type Next Note Type Re-evaluation Patient Information Identification Type Name,Wristband History Assessment & Plan narrative: Patient is a 81-year-old female with history of hypertension, hyperlipidemia, chronic back pain who had a mechanical ground level fall at home resulting in a displaced left for moral fracture and laceration to forehead. Dr. Malloy graciously accepted the patient for surgery candidate. Following surgery, pt was observed by OT to be having trouble swallowing when drinking water and also choked when trying to eat her celery . Per Dr. Dickson's note:-patient developed a respiratory event requiring high-flow oxygen last evening, chest x-ray confirms a right sided ground- glass opacities consistent with aspiration pneumonitis. Subjective Observations Pt was up in her bedside chair with nursing in the room. Introduced self and purpose for visit. Pt agreed to swallowing evaluation. Pt reported that she was having difficulty eating celery and when drinking. Pt was slightly inclined in bedside chair secondary to recent hip surgery. Pt talks a lot and frequently. Reported by Patient Other Symptoms Choking,Coughing,Difficulty swallowing liquids,Difficulty swallowing solids,History of aspiration or pneumonia Current Diet Regular,Thin liquids Baseline Feeding Method Independent in self-feeding Objective Assessment Mental Status Alert,Responsive,Cooperative Oral Integrity WFL Dentition Within normal limits Lip Function Within normal limits Tongue Function Mild impairment Observations of Tongue at Rest Within normal limits,Deviates to the left Tongue Protrusion Deviates to the left Hard/Soft Palate Function Within normal limits Observations of Hard/Soft Palate Within normal limits Comment Pts OME indicated left lingual deviation, reduced speed for tongue lateralization as well. Pt was unable to lift and depress tongue tip, reducing lingual control for isolated movement. Dentition normal. Lips, cheeks and mastication all WFL. Speech intelligible with normal diadochokinesis observed. Food and Liquid Trials Position During Assessment Slightly reclined Liquids Trialed Ice chips,Thin Solids Trialed Puree,Dysphagia Mechanical, Dysphagia Advanced,Mechanical Soft Administration Type Tea spoon,Controlled cup sip, Straw Oral Impairment Within functional limits Oral Phase Comments Good mastication with rotary chew. No oral stasis following all trials. Spontaneous tongue sweeps to left and right buccal cavities. Pharyngeal Impairment Mildly impaired Pharyngeal Phase Comments Hyolaryngeal elevation was adequate with prompt swallow response. Intermittent wet voicing after some swallow. Pt cued to clear throat, which was followed inconsistently. Trial applesauce was aspirated on second teaspoonful. O2 desated to low 70s. Nursing alerted to situation who responded. Encouraged pt to breathe through her nasal canula slowly after which O2 luiza to mid 90.s Following that, pt was encouraged to cough and breathe. Pt was repositioned in her chair upright at 90 degrees After ~ 10 minutes, trials resumed with small bites and a thin, white straw for liquids. The thin straw will reduce the amount per swallow as compared to the larger diameter straw. Pt did intermittently present with wet voicing and was encouraged to clear throat before resuming trials. No other incident of spontaneous choking/ coughing was noted. Fatigue/Endurance Endurance WNL Comment Pt's O2 sats were up and down during the session. She would start talking and desat. She desated frequently to the 70- 80s then O2 would return to normal level. Strategies Attempted Chin tuck Response/Comments Sitting pt upright resulted in pt swallowing with less difficulty. Pt MUST be upright at 90 degrees during PO meals AND MEDS Findings Swallowing Function Pharyngeal phase dysphagia Severity of Swallow Impairment Mildly-moderately impaired Contributing Factors to Swallow Reduced oral strength/ Impairment coordination/sensation, Impaired velopharyngeal closure/coordination,Reduced laryngeal excursion Prognosis Fair Based on Cognitive status,History of aspiration/aspiration pneumonia,Comorbidities Impact on Safety and Functioning Risk for aspiration Recommendations Instrumental Assessment No Swallowing Treatment Yes Frequency daily 1-2 times Recommended Solids Mechanical Soft Recommended Liquids Thin Other Recommendations Small diameter straw (white) Encourage pt to reduce talking Minimize distractions Safety Precautions/Swallowing 1 to 1 distant supervision, Recommendations Reduce distractions,Remain upright (90 degrees) during all oral intake,Upright position at least 30 minutes after meals,Small bites and sips when eating,Slow rate; swallow between bites,Sip by straw only Medication Recommendations As Tolerated,Whole in Carrier, Crushed in Carrier Discharge Recommendations senior living facility Education Patient/Caregiver Education Described results of evaluation,Patient expressed understanding of evaluation, Patient expressed agreement with goals & treatment plans, Patient expressed understanding of safety precautions Goals Short-term Goals Pt will follow safe swallow strategies during all PO intake as reported by nursing staff. Distractions for the pt will be minimized during ALL Po intake, including MEDS Long-term Goals pt will safely tolerate least restrictive diet to meet hydration and nutritional needs.
--- NOTE | 2021-04-24 19:44 | P.PN_ITS ---
Subjective Subjective Interval history: Patient is a 81-year-old female here for left femoral neck fracture. Patient underwent surgical repair without complication. Postoperatively unfortunately the patient apparently aspirated. She has a chest x-ray which confirms an aspiration pneumonia. Patient was seen by speech today and had an aspiration event during the evaluation. She continues to be hypoxic and require some at least 2 L of oxygen to maintain her O2 sat. Patient does not complain of shortness of breath or cough. He has no complaints of pain at this time. Exam Vital Signs (past 8 hours): - 04/24/21 12:22 04/24/21 15:26 04/24/21 15:32 Temperature Pulse Rate Respiratory Rate Blood Pressure Pulse Oximetry 92 92 92 04/24/21 15:35 04/24/21 19:16 Temperature 97.8 F 97.5 F L Pulse Rate 98 H 89 Respiratory Rate 18 18 Blood Pressure 130/61 155/93 H Pulse Oximetry 93 99 Oxygen Delivery Method Nasal Cannula Oxygen Flow Rate 2 Narrative Exam Narrative: Pleasant elderly female resting comfortably in no obvious distress Resp Other: Lungs: Decreased breath sounds, crackles on the right lung with scattered rhonchi, Cardio Other: Regular rate and rhythm, normal S1-S2, with a 2/6 systolic ejection murmur GI Other: Abdomen soft and nontender Extrem Other: Extremity no edema Objective Labs Result Diagrams: 04/23/21 06:20 04/22/21 05:20 [facility] Medical History Chronic back pain Essential hypertension Hyperlipidemia Surgical History History of appendectomy History of lumbar discectomy Family History Mother Heart attack Father Heart attack Sister ALS (amyotrophic lateral sclerosis) Social History household members: spouse Smoking Status: Former smoker alcohol intake: never Assessment & Plan Assessment & Plan narrative: Probable aspiration pneumonitis/acute hypoxic respiratory failure -patient developed a respiratory event requiring high-flow oxygen last evening, chest x-ray confirms a right sided ground-glass opacities consistent with aspiration pneumonitis -patient with history of smoking, however she quit 15 years ago and currently is not on oxygen -will start IV Unasyn 3 g q.8 hours -will continue oxygen and incentive spirometry -will obtain procalcitonin, if the patient's hypoxia continues consider CT angio of the chest for further evaluation -patient without obvious aspiration during her evaluation with speech, no need for further evaluation, will taper oxygen as tolerated 2. Status post left hip cemented hemiarthroplasty -patient with left hip fracture following a fall, likely related to underlying osteoporosis 3. Hyperlipidemia -continue statin 4. Hypertension -continue metoprolol -will hold chlorthalidone at this time 5. DVT prophylaxis -per surgery 6. 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
[2021-04-24] MEDS: SENNOSIDES 8.6 MG TABLET 17.2 MG PO (22:43)
[2021-04-25] VITALS (12 sets, daily range): BP systolic 129–164; BP diastolic 69–89; PULSE 75–93; RESP 14–18; TEMP 36.1–36.8; O2SAT 89–98
--- NOTE | 2021-04-25 01:52 | PC.NURSE ---
0050 Pt. sound asleep, 2 liters 02/NC 99%. Turned 02 down to 1 liter & SPO2 95%, will monitor & assess when she wakes up.
[2021-04-25] MEDS: SODIUM CHLORIDE 0.9% FLUSH 10 ML IV ×2 (02:42→10:11)
[2021-04-25] MEDS: AMPICILLIN/SULBACTAM 3 GM 3 GM in SODIUM CHLORIDE 0.9% 100 ML IV ×2 (02:43→10:10)
[2021-04-25 07:01] LABS: Add Manual Diff / Slide Review NO; Basophils Absolute Auto 0 /uL (0-100); Basophils Percent Auto 0.2 % (0-2); Eosinophils Absolute Auto 500 /uL (0-450); Eosinophils Percent Auto 4.6 % (2-4); Hematocrit 26.9 % (36-46); Lymphocytes Absolute Auto 700 /uL (1100-4500); Lymphocytes Percent Auto 6.9 % (25-40); Mean Corpuscular HGB Conc 33.6 % (30-36); Mean Corpuscular Hemoglobin 33.5 PG (26-34); Mean Corpuscular Volume 99.9 fL (80-100); Monocytes Absolute Auto 900 /uL (0-900); Monocytes Percent Auto 8.8 % (3-14); Neutrophils Absolute Auto 8400 /uL (1500-7000); Neutrophils Percent Auto 79.5 % (50-75); Platelet Count 142 X10^3/uL (150-400); Red Blood Cell Count 2.69 X10^6/uL (4.0-5.2); Red Cell Distribution Width 13.2 % (11.6-14.8); White Blood Cell Count 10.6 X10^3/uL (4.5-11.0)
[2021-04-25 07:08] LABS: BUN Creatinine Ratio 28.3 (6-22); Blood Urea Nitrogen 32 mg/dL (7-17); Calcium 9.4 mg/dL (8.4-10.2); Carbon Dioxide 29 mmol/L (22-32); Chloride 103 mmol/L (98-107); Estimated Glomerular Filt Rate 46.4 mL/min (>60); Glucose 96 mg/dL (80-110); HEMOLYSIS < 15 (0-50); Potassium 4.6 mmol/L (3.4-5.1); Sodium 138 mmol/L (137-145)
--- NOTE | 2021-04-25 07:47 | P.DS_ITS ---
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 The patient was able to get her 's attention who called EMS she was transported to [facility] ED. Dr. Zelaya kindly accepted the patient for surgical intervention, and patient was transferred to [facility] as a direct admit for left femur fracture following ground level fall and laceration to forehead.? Patient denies loss of consciousness, chest pain, shortness of breath, nausea, vomiting, abdominal pain, fever, body aches, chills, recent illness injury or trauma other than the above documented incident.? Patient is not on any blood thinners. Upon arrival patient is in a significant amount of pain to the left hip area and leg.? Patient is alert and orientated, her blood pressure is slightly elevated 182/77, HR 71, R 20, O2 saturation 97% on room air.? We did not receive H&P or physician notes from General we did receive her labs which were for the most part unremarkable.? Head CT was negative for acute intracranial processes and left leg x-ray demonstrated displaced left femoral fracture. Discharge Providers Provider Date of admission: 04/21/21 21:53 Discharge Date: 04/26/21 Primary care physician: Dean Garrison MD Consults: 04/21/21 23:00 Consult to Physician Routine Comment: Consulting Provider: Belen Gonzalez Reason for consultation: lt femur fx Has provider been notified: Yes 04/22/21 00:40 Consult to Pastoral Services Routine Comment: patient request 04/22/21 20:29 Consult to Discharge Planning Routine Comment: Consult to Physical Therapy Evaluate & Treat Comment: Physician Instructions: post op TERESA protocol Consult to Respiratory Therapy Evaluate & Treat Comment: Physician Instructions: Evaluate and treat 04/22/21 22:11 Consult to Respiratory Therapy Evaluate & Treat Comment: Physician Instructions: Evaluate and treat 04/23/21 14:25 Consult to Occupational Therapy Evaluate & Treat Comment: Physician Instructions: Evaluate and treat 04/24/21 15:43 Consult to Speech Therapy Evaluate & Treat Comment: Physician Instructions: Evaluate and treat 04/24/21 15:44 Consult to Dietitian, Adult Routine Comment: Reason For Exam: Patient on Ventilator and NPO Discharge provider: Rey Mir DO Summary Hospital Course Discharge Diagnosis: 1. Probable aspiration pneumonitis/acute hypoxic respiratory failure, improving. 2. left femoral neck fracture, pathologic. 3. Hyperlipidemia 4. Hypertension 5. Anemia, likely chronic, stable Hospital Course: This is a 81-year-old female with a past medical history of anemia, hypertension, and hyperlipidemia who fell and suffered a left femoral neck fracture. She underwent left hip hemiarthroplasty with Orthopedics, and will discharge to a [facility] facility. The evening following her michelle rgery, the patient required high-flow oxygen and a chest x-ray showed a right- sided ground-glass opacity consistent with aspiration pneumonitis. This could have been secondary to intubation for her procedure, or possibly due to swallowing difficulties after speech evaluation showed some pharyngeal swallow abnormalities. She is recommended for behavioral modifications and for a soft diet but cleared for thin liquids. She will continue physical, occupational, and speech therapies at [facility]. She is recommended to follow-up with orthopedics as an outpatient. No other medication changes are recommended at this time other than antibiotic therapy which will end on 04/29/2021. At the time of discharge her oxygen requirements are much diminished, requiring only minimal supplemental oxygen to maintain O2 saturations above 89%. I suspect this will be able to be weaned off soon at the usp facility. Time Spent with Patient Time spent: Greater than 30 minutes Exam Vital Signs (past 8 hours): - 04/25/21 02:00 04/25/21 03:00 Temperature 98.2 F Pulse Rate 93 H Respiratory Rate 18 Blood Pressure 164/87 H Pulse Oximetry 95 93 Oxygen Delivery Method Nasal Cannula Oxygen Flow Rate 2 Narrative Exam Narrative: Pleasant elderly female resting comfortably in no obvious distress Resp Other:?Lungs: Decreased breath sounds, crackles on the right lung with scattered rhonchi, Cardio Other:?Regular rate and rhythm, normal S1-S2, with a 2/6 systolic ejection murmur GI Other:?Abdomen soft and nontender Extrem Other:?Extremity no edema Objective Labs Result Diagrams: 04/25/21 06:15 04/25/21 06:15 Labs: Laboratory Results - last 24 hr 04/25/21 04/25/21 06:15 06:15 WBC 10.6 RBC 2.69 L Hgb 9.0 L Hct 26.9 L MCV 99.9 MCH 33.5 MCHC 33.6 RDW 13.2 Plt Count 142 L Neut % (Auto) 79.5 H Lymph % (Auto) 6.9 L [place] % (Auto) 8.8 Eos % (Auto) 4.6 H Baso % (Auto) 0.2 Neut # (Auto) 8400 H Lymph # (Auto) 700 L [place] # (Auto) 900 Eos # (Auto) 500 H Baso # (Auto) 0 Sodium 138 Potassium 4.6 Chloride 103 Carbon Dioxide 29 BUN 32 H Creatinine 1.13 H Estimated GFR 46.4 L BUN/Creatinine Ratio 28.3 H Glucose 96 Calcium 9.4 PFSH Medical History Chronic back pain Essential hypertension Hyperlipidemia Surgical History History of appendectomy History of lumbar discectomy Family History Mother Heart attack Father Heart attack Sister ALS (amyotrophic lateral sclerosis) Social History household members: spouse Smoking Status: Former smoker alcohol intake: never Discharge Plan Discharge Plan Patient Disposition: SNF Provider Discharge Comment: Patient admitted with a femoral neck fracture on the left. Underwent operative interventions with orthopedics. Stable for discharge to SNF. Course complicated by aspiration, seen by speech therapy recommended behavioral modifications and soft diet. Continue PT/OT/speech at [facility]. Posterior hip precautions and WBAT on the LLE. Nursing Discharge Comment: Remove sutures in 7 days above lt eye. Discharge orders & Medications Prescriptions: New aspirin 81 mg Tablet,Delayed Release (Dr/Ec) 81 mg PO BID 60 Days Qty: 120 RF: 0 acetaminophen 325 mg Tablet 650 mg PO TID 30 Days Qty: 180 RF: 0 acetaminophen 325 mg Tablet 650 mg PO Q6HR PRN (Reason: Fever/Mild Pain (1-3)) 30 Days Qty: 90 RF: 0 docusate sodium [DOK] 100 mg Capsule 100 mg PO BID 14 Days Qty: 28 RF: 0 oxycodone 5 mg Tablet 5 mg PO Q3HR PRN (Reason: Pain, Moderate (4-6)) 7 Days Qty: 20 RF: 0 polyethylene glycol 3350 17 gram Powder In Packet 17 g PO DAILY PRN (Reason: Constipation) 30 Days Qty: 30 RF: 0 sennosides [senna] 8.6 mg Tablet 17.2 mg PO BEDTIME 15 Days Qty: 30 RF: 0 amoxicillin-pot clavulanate [Augmentin] 875-125 mg Tablet 1 tab PO BID 5 Days Qty: 10 RF: 0 Continued multivitamin Tablet 1 tab PO DAILY RF: 0 atorvastatin 40 mg Tablet 40 mg PO BEDTIME RF: 0 chlorthalidone 25 mg Tablet 25 mg PO DAILY RF: 0 gabapentin 100 mg Capsule 200 mg PO BEDTIME RF: 0 cholecalciferol (vitamin D3) 50 mcg (2,000 unit) Capsule 50 mcg PO DAILY RF: 0 metoprolol succinate 100 mg Capsule,Sprinkle,Er 24hr 100 mg PO DAILY RF: 0 Discontinued aspirin 325 mg Tablet 325 mg PO DAILY RF: 0 Follow up/Referrals: Belen Gonzalez MD [Physician] - (10-14 days for a postoperative visit) Dean Garrison MD [Primary Care Provider] - Discharge Health Status Multidrug resistant organism: No MDRO Precautions: [place] Diet/Activity/Treatments Diet: Diet as Tolerated Liquid consistency: Normal/Thin Food texture: Soft Diet comment: See speech notes Activity: WBAT, posterior hip precautions Special Rehabilitation Services Rehab type: Physical therapy, Occupational therapy and Speech therapy Restrictions to mobility: WBAT, posterior hip precautions Visit Report/Discharge Packet Instructions: DI for Pneumonia -- Adult, DI for Hip Replacement, How to Prevent Falls Discharge Data Primary Care Provider: Dean Garrison Quality MIPS - Admit I confirm the patient?s Advance Care Plan is present, Code status is documented, Surrogate decision maker is in patient?s record [If Yes, STOP here]: Yes MIPS - DC The patient has current or prior documentation of left ventricular ejection fraction (LVEF) less than 40%, or moderate or severely depressed left ventricular systolic function.: No
--- NOTE | 2021-04-25 09:05 | CM.DPC ---
Addendum entered by Jessica Arnold R.N. 04/25/21 14:39: Patient is supposed to be discharged to [facility] today. She does need oxygen to go with her. R.T. was setting it up so patient can go with a portable until she can get there. [employer] arrived, but was notified that she inured her hand, and she is still here. Called [facility], and spoke to vehicle maintenance supervisor named Emelyn, who has no knowledge about her injuring herself. The grab driver is now down in the ER, and the patient is back in her room. It is unclear if patient will be able to be picked up for discharge today. Emelyn at [facility], indicated that patient can be refunded for cost, if needed. Called Teresa at [facility] regarding situation, and she will speak to the team to see if patient can come at a later time today. Original Note: DCP Cont: Patient has discharge orders. Have left Teresa at [facility] a message. Faxed over PASSR, prescription, med sheets, DC Summary, and COVID vaccine information, pending COVID swab. Attempted to fax it over, but did not go through. Called back and received another fax number, and resent. Asked cashier receptionist to have Teresa call this disease case manager rn back. Called [facility], and they set up grain picker at [phone]. Cost will be approximately 209.00. Let know, since they may be calling with credit card number. P: Patient is supposed to discharge to [facility] today, in [place]. Awaiting call back from Teresa, and COVID results. Have faxed information over already. Nurse, Soraida, is also aware. Jessica Arnold RN/Mgmt Specialist
[2021-04-25] MEDS: ACETAMINOPHEN 325 MG TABLET 650 MG PO ×3 (10:09→21:01)
[2021-04-25] MEDS: ASPIRIN EC 81 MG TABLET PO ×2 (10:10→21:01)
[2021-04-25] MEDS: METOPROLOL ER 50 MG TABLET 100 MG PO (10:10)
--- NOTE | 2021-04-25 10:14 | PT.IPTN ---
Current Diagnoses Laceration without foreign body of unspecified part of head, initial encounter (04/21/21) Fracture of unspecified part of neck of unspecified femur, initial encounter for closed fracture (04/21/21) Surgery Performed Operation Date: 04/22/21 14:30 Actual Procedures p Hip Hemiarthroplasty(Left) - Khoa Muhammad MD Physical Therapy Treatment Note M2 PT-IP Current Condition Start: 04/23/21 12:14 Freq: NEEDED Status: Active Protocol: Document 04/23/21 10:05 AB (Rec: 04/23/21 12:28 AB [id number]) Physical Therapy Current Condition Current Condition Evaluation Date 04/23/21 Treatment Diagnosis L femoral neck fx s/o hemiarthroplasty; difficulty in walking Onset Date 04/21/21 Precautions Posterior Hip Precautions No Hip Flexion > 90 degrees,No Hip Internal Rotation,No Hip Adduction Weight Bearing Status Weight Bearing Status Weight Bear as Tolerated Allowed Weight Bearing Amount (enter % LLE WBAT or #) (%) M3 PT-IP Subjective Start: 04/23/21 12:14 Freq: NEEDED Status: Active Protocol: Document 04/25/21 09:48 CLB (Rec: 04/25/21 13:18 CLB [id number]) Subjective Physical Therapy Visit Type Type Treatment Note Visit Start Time 09:48 Visit Stop Time 10:14 Total Visit Minutes 26 Number of BUSHWALKING GUIDE Visits 1 Physical Therapy Visit Comments Patient Comments agreeable to do PT Therapy Pain Assessment Pain When Pain Assessed During Mobility M4 PT-IP Mobility and Gait Start: 04/23/21 12:14 Freq: NEEDED Status: Active Protocol: Document 04/25/21 09:48 CLB (Rec: 04/25/21 13:18 CLB [id number]) PT-Bed Mobility Assessment Supine to Sit Supine to Sit Minimal Assistance,1 Person Assistance,Head of Bed Elevated PT-Transfer Assessment Sit to and From Stand Sit to and from Stand Moderate Assistance,1 Person Assistance,Use of Upper Extremities Equipment Transfer Assistive Device Gait Belt,Front Wheeled Walker Orthotic/Prosthetic Devices or Brace: No Transfers Transfer Destination Chair,Toilet Transfer Ability Level of Assist Moderate Assistance,1 Person Assistance,Use of Upper Extremities Comments Mobility Comments Pt in supine with, SpO2 on 2L 93%, pt took off O2 with O2 decreasing to 84% once sitting on EOB. Pt performed PLB and O2 increased to 90%. Pt stood Mod A and ambulated to BR, O2 on RA once pt was sitting on toilet 91%. Pt able to perform own pericare. Pt stood requiring Mod A from toilet and ambulated to chair sitting in chair Min A and cues for hand placement. Pt performed seated ther ex. Left pt in chair with alarm on and all needs within reach and wedge in place to prevent hip IR and hip add. Gait Assessment Gait Gait Assistance Required: Minimum Assistance,1 Person Assist Distance (Feet) 20 Able to Maintain Weight Bearing Status Yes During Gait Assistive Devices Assistive Device Gait Belt,Front Wheeled Walker Orthotic/Prosthetic Devices or Brace: No Gait Deviations General Gait Pattern Antalgic,Decreased Stride Length,Decreased Feet Clearance,Step-to Gait Factors Limiting Gait Function Factors Limiting Gait Function Decreased Activity Tolerance, Decreased Strength,Difficulty Following Directions,Limited Range of Motion,Pain,Poor Balance,Poor Safety Awareness, Respiratory Distress Comments Gait Comments Pt uses step to gait pattern with heavy use of UE on walker to offload wt from LLE. 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 Gross Range of Motion Lower Extremity ROM Assessment Within Functional Limits Strength Lower Extremity Strength Assessment Left Impaired Hip 3+/5 Knee 4-/5 Coordination Assessment Gross Coordination Gross Coordination WNL Sensation Assessment Sensation Gross Sensation WNL Muscle Tone Muscle Tone WNL Yes M6 PT-IP Treatment Start: 04/23/21 12:14 Freq: NEEDED Status: Active Protocol: Document 04/25/21 09:48 CLB (Rec: 04/25/21 13:18 CLB [id number]) Physical Therapy Treatment Exercises Exercises Ankle Pumps,Quad Sets,Heel Slides,Seated Knee Flexion/ Extension Education Education Provided Precautions,Safety M7 PT-IP Assessment and Plan Start: 04/23/21 12:14 Freq: NEEDED Status: Active Protocol: Document 04/25/21 09:48 CLB (Rec: 04/25/21 13:18 CLB [id number]) PT Summary Assessment and Plan Potential Rehabilitation Potential Fair Summary Impairments Pain,ROM,Strength,Balance, Coordination,Sensation,Tone, Cognition,Bed Mobility, Transfers,Gait,Activity Tolerance Progress Towards Goals Slow Progress due to Medical Issues,Slow Progress due to Activity Tolerance,Slow Progress - Other Assessment Summary Pt continues to require Min- Mod A for all mobility. Pt able to recall2/3 hip precautions. Pt SpO2 on 2L 93% , SpO2 after ambulation to bathroom on RA 91%, pt did experience drop in O2 with bed mobility on RA to 84% with cues for PLB and not to hold her breath during bed mobility . Pt will benefit from SNF to increase strength to increase functional mobility and activity tolerance. Goals Bed Mobility Goal Standby Assistance Transfer Goal Standby Assistance,Front Wheeled Walker Gait Goal Standby Assistance,Front Wheel Walker Gait Distance 150 Other Goals up/down 4 steps 1 rail CGA Days to Meet Goals 10 Frequency of Treatment Frequency Of Treatment Twice a Day Treatment Plan Physical Therapy Treatment Plan Bed Mobility Training,Transfer Training,Gait Training, Therapeutic Exercise,Balance Retraining,Post Op Education, Discharge Planning,Hot or Cold Pack,Neuromuscular Re-ed, Coordination Retraining,Manual Therapy Precautions Posterior Hip Precautions No Hip Flexion > 90 degrees,No Hip Internal Rotation,No Hip Adduction Other Precautions WBAT LLE Recommendations To Nursing Amount of Assist Needed 1 Person Assist Discharge Recommendations PT Discharge Recommendations SNF Rehab Transportation Needs at Discharge Private Vehicle,Wheelchair/ Cabulance
[2021-04-25] MEDS: DOCUSATE 100 MG CAPSULE PO ×2 (10:17→21:01)
[2021-04-25] MEDS: OXYCODONE IR 5 MG TABLET PO ×2 (10:17→13:55)
--- NOTE | 2021-04-25 11:46 | ST.IPDYTX ---
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 Pt sitting upright in her bed having just finished OT. Copy of written strategies/ aspiration precautions was provided to pt by OT. Reviewed safe swallow strategies with pt. Copy of written strategies /aspiration precautions was provided to pt by OT. Pt reported that she had choked during her breakfast as she was not taking small bites and eating slowly. pt also reported that she had been doing the breathing exercises which result in coughing. She coughed up a large sputum sample into a napkin. pt was able to safely drink wa Treatment Treatment Activities Copy of written strategies/ aspiration precautions was provided to pt by OT. Reviewed safe swallow strategies with pt. Copy of written strategies /aspiration precautions was provided to pt by OT. Pt reported that she had choked during her breakfast as she was not taking small bites and eating slowly. pt also reported that she had been doing the breathing exercises which result in coughing. She coughed up a large sputum sample into a napkin. Pt was able to safely drink water with small diameter straw with no cough/choke/wet voicing observed. In discussion of eating slowly, pt was instructed to set her utensil down between bites and to not take another bite until the previous bite is swallowed. She indicated she understood and would eat slower at her next meal. Assessment Patient Response to Treatment Good Rehab Potential Good Diet Recommendations Liquids Order Thin Diet Order Mechanical Soft Medication Recommendations Whole in Carrier,Crushed in Carrier Additional Dietary Needs Reminders to Use Strategies Aspiration Precautions Recommended Precautions Upright at 90 Degrees,Frequent Rest Periods,Small Bites/Sips Additional Precautions narrow straw; eat/dring slowly , resting between bites; reduce talking Treatment Plan Placement Recommendation after Discharge Shelter Facility Appropriate for Continued Therapy Yes: pt lacks insight into dysphagia related to pneumonia Therapy Recommendations Continue dysphagia therapy at SNF with ST Cognitive therapy with ST given low SLUMS score Dysphagia Goals Pt will follow safe swallow strategies during all PO intake as reported by nursing staff. Distractions for the pt will be minimized during ALL Po intake, including MEDS pt will safely tolerate least restrictive diet to meet hydration and nutritional needs.
--- NOTE | 2021-04-25 13:03 | DIET.PN1 ---
Dietary Progress Note RD mistakenly consulted for NPO on vent status. Pt not on ventilator and tolerating dysphagia diet. RD to d/c consult per hospitalist.
[2021-04-25 13:29] LABS: COVID19 - ADMIT (NP swab/PCR) Negative (Negative)
--- NOTE | 2021-04-25 15:06 | OT.IP.TRT ---
Current Diagnoses Laceration without foreign body of unspecified part of head, initial encounter (04/21/21) Fracture of unspecified part of neck of unspecified femur, initial encounter for closed fracture (04/21/21) Surgery Performed Operation Date: 04/22/21 14:30 Actual Procedures p Hip Hemiarthroplasty(Left) - Khoa Muhammad MD Occupational Therapy Treatment Note M2 OT-IP Current Condition Start: 04/23/21 16:27 Freq: Status: Active Protocol: Document 04/23/21 15:12 [facility] (Rec: 04/23/21 16:47 [facility] [id number]) Occupational Therapy Current Condition Current Condition Evaluation Date 04/23/21 Treatment Diagnosis Left femoral neck fx, s/p LTHA , decreased mobility Diagnosis Onset Date 04/21/21 Post Operative Precautions Posterior Hip Precautions No Hip Flexion > 90 degrees,No Hip Internal Rotation,No Hip Adduction M3 OT- IP Subjective and Pain Start: 04/23/21 16:27 Freq: Status: Active Protocol: Document 04/25/21 15:08 [facility] (Rec: 04/25/21 15:18 [facility] [id number]) OT- Subjective Occupational Therapy Visit Type Type Treatment Note Visit Start Time 14:42 Visit Stop Time 13:06 Total Visit Minutes 24 Occupational Therapy Visit Comments Patient Comments Pt wanting to use the bathroom prior to being discharged. Patient/Caregiver Goals TO go to skilled rehab. OT Pain Assessment Pain When Pain Assessed At Rest Pain Present Pain Present Denied Pain M4 OT- IP ADL's Start: 04/23/21 16:27 Freq: Status: Active Protocol: Document 04/25/21 15:08 [facility] (Rec: 04/25/21 15:18 [facility] [id number]) OT ADL-Dressing General Eval Lower Body Dressing Ability Moderate Assistance,Maximum Assistance Comments OT Dressing Comments Pt able to pull down and up her brief but needing assist to emile clothing over her feet . Pt needing assist to emile her shoes with ties. OT ADL-Toileting General Evaluation Toileting Ability Minimal Assistance Devices Toileting Assistive Devices Grab Bars Comments OT Toileting Comments Pt able to wipe but needing cues to follow her hip precautions. Pt able to pull down and up her brief and needing JAXSON for balance from the therapist. M6 OT- IP Functional Cognition Start: 04/23/21 16:27 Freq: Status: Active Protocol: Document 04/25/21 15:08 [facility] (Rec: 04/25/21 15:18 [facility] [id number]) Cognitive Factors Limiting Selfcare Function Cognitive Ability Level of Alertness Alert Patient Orientation Name,Age,Birthday,Month,Date, Year,Day of Week,Place, Situation Attention Span Ability Capable of Focused Attention, Capable of Sustained Attention Ability to Follow Commands Able to Follow Multi-Step Commands Safety Awareness Decreased Recall of Precautions,Decreased Ability to Apply Precautions, Underestimates Need for Assistance Cognitive Comments Cognitive Assessment Comments Pt continues to forget to incorporate her hip precautions during toileting and mobility needs. Pt needing cue to slow down and think things through before moving. M7 OT- IP Mobility and Balance Start: 04/23/21 16:27 Freq: Status: Active Protocol: Document 04/25/21 15:08 [facility] (Rec: 04/25/21 15:18 [facility] [id number]) OT-Transfer Assessment Sit to and From Stand Sit to and from Stand Moderate Assistance,1 Person Assistance Transfers Transfer Ability Moderate Assistance,1 Person Assistance Technique Transfer Destination Chair,Toilet Transfer Technique Stand Step Pivot Devices Transfer Assistive Devices Gait Belt,Front Wheeled Walker Comments Mobility Comments Pt MODA to help stand from recliner and toilet to FWW. Pt able to help push up from the recliner with one hand and one hand on the fww however needing assist to stand and also assist to hold the FWW in place. OT- Gait Assessment Comments Gait Ability Comments MODA with FWW. OT- Balance Assessment Sitting Balance and Reactions Static Sitting Balance Ability Normal Dynamic Sitting Balance Ability Good Standing Balance and Reactions Static Standing Balance Ability Fair M8 OT- IP Objective Assessments Start: 04/23/21 16:27 Freq: Status: Active Protocol: Document 04/23/21 15:12 [facility] (Rec: 04/23/21 16:47 [facility] [id number]) OT Gross Range of Motion Upper Extremity Range of Motion Assessment Within Functional Limits OT Strength Upper Extremity Strength Assessment Within Functional Limits OT- Coordination Assessment Comments Coordination Comments Arthritic changes in her hands . M9 OT- IP Assessment and Plan Start: 04/23/21 16:27 Freq: Status: Active Protocol: Document 04/25/21 15:08 [facility] (Rec: 04/25/21 15:18 [facility] [id number]) OT Summary Assessment and Plan Potential Rehabilitation Potential Good Analytic Complexity at Evaluation Moderate Summary OT Impairments Pain,Balance,Coordination, Functional Cognition, Functional Mobility,Grooming, Dressing,Toileting,Bathing, Toilet Transfers,Shower Transfers,Activity Tolerance Progress Towards Goals Progressing Toward Goals Assessment Summary Overall pt moving much better with mobility needs. Pt still a bit impulsive and needing to slow down, and incorporate her hip precautions consciously at all times. Pt looking to go to skilled rehab prior to going home. Goals Self-Feeding Goal Independent Grooming Goal Independent Dressing Goal Independent Toileting Goal Independent Bathing Goal Independent Toilet Transfer Goal Independent Shower Transfer Goal Independent Patient/Caregiver Education Goal Demonstrate Post-Op Precautions,Caregiver Independent Assisting Patient Days to Meet Goals 25 Frequency of Treatment Frequency Of Treatment Once a Day Treatment Plan OT Treatment Plan ADL Training,Functional Cognition Training,Functional Mobility,Patient/Family Education,Discharge Planning Other Treatment Recommendations and Next Lb dressing practice with Treatment Focus adaptive equipment if pt still here. Discharge Recommendations OT Discharge Recommendations SNF Rehab Transportation Needs at Discharge Wheelchair/Cabulance
--- NOTE | 2021-04-25 15:21 | CM.DPC ---
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 They attempted to dispatch another skidder driver, but would not be able to be here until 4:30, and Teresa at [facility] indicated, it would be too late. 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 Updated Teresa at [facility], expected arrival at approximately 0930. Let her know that she will be on oxygen. All orders are in place including PASSR. P: Patient is expected to discharge tomorrow to [facility]. director supply time with [facility] is 0830. She will need to go with portable oxygen. Have also updated patient as well. Jessica Arnold RN/Vegetable Inspector
--- NOTE | 2021-04-25 15:45 | DI.RAD.S_ITS ---
PROCEDURE: XR CHEST 1V INDICATIONS: follow up for aspiration TECHNIQUE: One view of the chest was acquired. COMPARISON: [facility], CR, XR CHEST 1V, 04/23/2021, 12:38. FINDINGS: Surgical changes and devices: None. Lungs and pleura: Previous right lobe opacities remain present, minimally less prominent. Mediastinum: Mediastinal contours appear normal. Heart size is mildly prominent. Bones and chest wall: No suspicious bony lesions. Overlying soft tissues appear unremarkable. IMPRESSION: Persistent although less prominent right lobe opacities suggestive of pneumonia. Dictated by: Monica Manrique M.D. on 04/25/2021 at 8:28 Approved by: Monica Manrique M.D. on 04/25/2021 at 8:29
--- NOTE | 2021-04-25 16:25 | PT.IPTN ---
Current Diagnoses Laceration without foreign body of unspecified part of head, initial encounter (04/21/21) Fracture of unspecified part of neck of unspecified femur, initial encounter for closed fracture (04/21/21) Surgery Performed Operation Date: 04/22/21 14:30 Actual Procedures p Hip Hemiarthroplasty(Left) - Khoa Muhammad MD Physical Therapy Treatment Note M2 PT-IP Current Condition Start: 04/23/21 12:14 Freq: NEEDED Status: Active Protocol: Document 04/23/21 10:05 AB (Rec: 04/23/21 12:28 AB [id number]) Physical Therapy Current Condition Current Condition Evaluation Date 04/23/21 Treatment Diagnosis L femoral neck fx s/o hemiarthroplasty; difficulty in walking Onset Date 04/21/21 Precautions Posterior Hip Precautions No Hip Flexion > 90 degrees,No Hip Internal Rotation,No Hip Adduction Weight Bearing Status Weight Bearing Status Weight Bear as Tolerated Allowed Weight Bearing Amount (enter % LLE WBAT or #) (%) M3 PT-IP Subjective Start: 04/23/21 12:14 Freq: NEEDED Status: Active Protocol: Document 04/25/21 16:01 CLB (Rec: 04/25/21 16:49 CLB [id number]) Subjective Physical Therapy Visit Type Type Treatment Note Visit Start Time 16:01 Visit Stop Time 16:25 Total Visit Minutes 24 Number of WEALTH MANAGEMENT ADVISOR Visits 2 Physical Therapy Visit Comments Patient Comments agreeable to do PT Therapy Pain Assessment Pain When Pain Assessed During Mobility Pain Present Pain Present Pain Reported Location left hip Scale Used pain scale not stated M4 PT-IP Mobility and Gait Start: 04/23/21 12:14 Freq: NEEDED Status: Active Protocol: Document 04/25/21 16:01 CLB (Rec: 04/25/21 16:49 CLB [id number]) PT-Bed Mobility Assessment Sit to Supine Sit to Supine Minimal Assistance,1 Person Assistance PT-Transfer Assessment Sit to and From Stand Sit to and from Stand Moderate Assistance,1 Person Assistance,Use of Upper Extremities Equipment Transfer Assistive Device Gait Belt,Front Wheeled Walker Orthotic/Prosthetic Devices or Brace: No Transfers Transfer Destination Bed,Toilet Transfer Ability Level of Assist Minimal Assistance,1 Person Assistance,Use of Upper Extremities Comments Mobility Comments Pt in chair , pt SpO2 85% on RA, pt stood ambulating in hallway. Pt requires Min A and cues for walker management. Pt with LOB during standing balance while checking SpO2. Pt ambulated to BR sitting with use of wall rail Min A and required Mod A for standing from toilet. Pt ambulated to EOB sitting Min A and required Mod A for sit- supine. Pt performed ther ex in supine. Pt left in bed with alarm on and all needs within reach. Gait Assessment Gait Gait Assistance Required: Minimum Assistance,1 Person Assist Distance (Feet) 100 Assistive Devices Assistive Device Gait Belt,Front Wheeled Walker Orthotic/Prosthetic Devices or Brace: No Gait Deviations General Gait Pattern Antalgic,Decreased Stride Length,Decreased Feet Clearance,Step-to Gait Factors Limiting Gait Function Factors Limiting Gait Function Decreased Activity Tolerance, Decreased Strength,Difficulty Following Directions,Limited Range of Motion,Pain,Poor Balance,Poor Safety Awareness, Respiratory Distress Comments Gait Comments Pt uses step to gait pattern with heavy use of UE on walker to offload wt from LLE. 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 Gross Range of Motion Lower Extremity ROM Assessment Within Functional Limits Strength Lower Extremity Strength Assessment Left Impaired Hip 3+/5 Knee 4-/5 Coordination Assessment Gross Coordination Gross Coordination WNL Sensation Assessment Sensation Gross Sensation WNL Muscle Tone Muscle Tone WNL Yes M6 PT-IP Treatment Start: 04/23/21 12:14 Freq: NEEDED Status: Active Protocol: Document 04/25/21 16:01 CLB (Rec: 04/25/21 16:49 CLB [id number]) Physical Therapy Treatment Exercises Exercises Quad Sets,Heel Slides Education Education Provided Precautions,Safety M7 PT-IP Assessment and Plan Start: 04/23/21 12:14 Freq: NEEDED Status: Active Protocol: Document 04/25/21 16:01 CLB (Rec: 04/25/21 16:49 CLB [id number]) PT Summary Assessment and Plan Summary Impairments Pain,ROM,Strength,Balance, Coordination,Sensation,Tone, Cognition,Bed Mobility, Transfers,Gait,Activity Tolerance Progress Towards Goals Slow Progress due to Medical Issues,Slow Progress due to Activity Tolerance,Slow Progress - Other Assessment Summary Pt requiring Min-Mod A for all mobility. Pt increased gait distance to ~100ft requiring Min A. Pt will benefit from SNF to increase strength to increase functional mobility and activity tolerance. Goals Bed Mobility Goal Standby Assistance Transfer Goal Standby Assistance,Front Wheeled Walker Gait Goal Standby Assistance,Front Wheel Walker Gait Distance 150 Other Goals up/down 4 steps 1 rail CGA Days to Meet Goals 10 Frequency of Treatment Frequency Of Treatment Twice a Day Treatment Plan Physical Therapy Treatment Plan Bed Mobility Training,Transfer Training,Gait Training, Therapeutic Exercise,Balance Retraining,Post Op Education, Discharge Planning,Hot or Cold Pack,Neuromuscular Re-ed, Coordination Retraining,Manual Therapy Precautions Posterior Hip Precautions No Hip Flexion > 90 degrees,No Hip Internal Rotation,No Hip Adduction Other Precautions WBAT LLE Recommendations To Nursing Amount of Assist Needed 1 Person Assist Discharge Recommendations PT Discharge Recommendations SNF Rehab Transportation Needs at Discharge Private Vehicle,Wheelchair/ Cabulance
--- NOTE | 2021-04-25 18:59 | P.PN_ITS ---
Subjective Subjective Date Patient Seen: 04/25/21 Time Patient Seen: 09:00 Interval history: Patient is a 81-year-old female here for left femoral neck fracture.? Patient underwent surgical repair without complication.? Postoperatively unfortunately the patient apparently aspirated.? She has a chest x-ray which confirms an aspiration pneumonia.? Patient was seen by speech today and had an aspiration event during the evaluation.?oxygenation continues to improve today. Was set up for discharge to SNF but difficulties with transportation mean deferred until tomorrow. Exam Vital Signs (past 8 hours): - 04/25/21 11:45 04/25/21 12:10 04/25/21 15:44 Temperature 97.2 F L Pulse Rate 75 Respiratory Rate 14 Blood Pressure 139/69 Pulse Oximetry 96 93 91 04/25/21 15:55 Temperature 97.5 F L Pulse Rate 80 Respiratory Rate 17 Blood Pressure 129/74 Pulse Oximetry 89 L Oxygen Delivery Method Room Air Oxygen Flow Rate 0 Narrative Exam Narrative: Pleasant elderly female resting comfortably in no obvious distress Resp Other:?Lungs: Decreased breath sounds, crackles on the right lung with scattered rhonchi, Cardio Other:?Regular rate and rhythm, normal S1-S2, with a 2/6 systolic ejection murmur GI Other:?Abdomen soft and nontender Extrem Other:?Extremity no edema Objective Labs Result Diagrams: 04/25/21 06:15 04/25/21 06:15 Labs: Laboratory Results - last 24 hr 04/25/21 04/25/21 04/25/21 06:15 06:15 12:00 WBC 10.6 RBC 2.69 L Hgb 9.0 L Hct 26.9 L MCV 99.9 MCH 33.5 MCHC 33.6 RDW 13.2 Plt Count 142 L Neut % (Auto) 79.5 H Lymph % (Auto) 6.9 L App[place] % (Auto) 8.8 Eos % (Auto) 4.6 H Baso % (Auto) 0.2 Neut # (Auto) 8400 H Lymph # (Auto) 700 L Appling # (Auto) 900 Eos # (Auto) 500 H Baso # (Auto) 0 Sodium 138 Potassium 4.6 Chloride 103 Carbon Dioxide 29 BUN 32 H Creatinine 1.13 H Estimated GFR 46.4 L BUN/Creatinine Ratio 28.3 H Glucose 96 Calcium 9.4 SARS-CoV-2 (PCR) Negative [facility] Medical History Chronic back pain Essential hypertension Hyperlipidemia Surgical History History of appendectomy History of lumbar discectomy Family History Mother Heart attack Father Heart attack Sister ALS (amyotrophic lateral sclerosis) Social History household members: spouse Smoking Status: Former smoker alcohol intake: never Assessment & Plan Assessment & Plan narrative: 1. Probable aspiration pneumonitis/acute hypoxic respiratory failure -patient developed a respiratory event requiring high-flow oxygen last evening, chest x-ray confirms a right sided ground-glass opacities consistent with aspiration pneumonitis -patient with history of smoking, however she quit 15 years ago and currently is not on oxygen -started IV Unasyn 3 g q.8 hours, transition to PO augementin -will continue oxygen and incentive spirometry 2. Status post left hip cemented hemiarthroplasty -patient with left ip fracture following a fall, likely related to underlying osteoporosis 3. Hyperlipidemia -continue statin 4. Hypertension -continue metoprolol -will hold chlorthalidone at this time 5. DVT prophylaxis -per surgery 6. Anemia, likely dilutional, likely chronic Plan: transfer to SNF tomorrow. Time Spent With Patient Critical Care time: I spent a total of [] minutes of critical care time on this patient's care today; this time is exclusive of procedural time.
[2021-04-25] MEDS: SENNOSIDES 8.6 MG TABLET 17.2 MG PO (21:01)
[2021-04-25] MEDS: AMOXICILLIN/CLAV 875/125 MG 1 TAB PO (21:01)
--- NOTE | 2021-04-26 02:14 | PC.NURSE ---
Pt resting quietly in bed with 2L humidified oxygen per nc in place. Eyes closed without signs of distress or discomfort.
[2021-04-26 03:00] VITALS: O2SAT 94
[2021-04-26 03:30] VITALS: BP 159/82; PULSE 105; RESP 18; TEMP 36.2; O2SAT 95
[2021-04-26 07:30] VITALS: O2SAT 95
--- NOTE | 2021-04-26 07:53 | PT.IPTN ---
Current Diagnoses Laceration without foreign body of unspecified part of head, initial encounter (04/21/21) Fracture of unspecified part of neck of unspecified femur, initial encounter for closed fracture (04/21/21) Surgery Performed Operation Date: 04/22/21 14:30 Actual Procedures p Hip Hemiarthroplasty(Left) - Khoa Muhammad MD Physical Therapy Treatment Note M2 PT-IP Current Condition Start: 04/23/21 12:14 Freq: NEEDED Status: Active Protocol: Document 04/23/21 10:05 AB (Rec: 04/23/21 12:28 AB [id number]) Physical Therapy Current Condition Current Condition Evaluation Date 04/23/21 Treatment Diagnosis L femoral neck fx s/o hemiarthroplasty; difficulty in walking Onset Date 04/21/21 Precautions Posterior Hip Precautions No Hip Flexion > 90 degrees,No Hip Internal Rotation,No Hip Adduction Weight Bearing Status Weight Bearing Status Weight Bear as Tolerated Allowed Weight Bearing Amount (enter % LLE WBAT or #) (%) M3 PT-IP Subjective Start: 04/23/21 12:14 Freq: NEEDED Status: Active Protocol: Document 04/26/21 07:40 SP (Rec: 04/26/21 08:19 SP [id number]) Subjective Physical Therapy Visit Type Type Treatment Note Visit Start Time 07:40 Visit Stop Time 07:53 Total Visit Minutes 13 Number of COST RECORDER Visits 3 Physical Therapy Visit Comments Patient Comments agreeable to do PT Patient Goals Go to rehab for few days to get stronger before going home . Therapy Pain Assessment Pain When Pain Assessed During Mobility Pain Present Pain Present Pain Reported Location left hip Scale Used pain scale not stated Pain Management Techniques Re-positioning M4 PT-IP Mobility and Gait Start: 04/23/21 12:14 Freq: NEEDED Status: Active Protocol: Document 04/26/21 07:40 SP (Rec: 04/26/21 08:19 SP [id number]) PT-Bed Mobility Assessment Supine to Sit Supine to Sit Standby Assistance Sit to Supine Sit to Supine Standby Assistance PT-Transfer Assessment Sit to and From Stand Sit to and from Stand Standby Assistance,Use of Upper Extremities Equipment Transfer Assistive Device Gait Belt,Front Wheeled Walker Orthotic/Prosthetic Devices or Brace: No Transfers Transfer Destination Bed,Chair Transfer Technique Pt ambulated using FWW Transfer Ability Level of Assist Standby Assistance,Use of Upper Extremities Comments Mobility Comments Pt seated in chair when arrived on 2L O2 high 90s at rest. COST RECORDER educated proper breath to support oxygen saturation pre mobiltiy, how to change O2 tubing to portable O2 tank for supplimental assist, good demonstration. Scoot to EOchair, Sit> stand with use of BUEs on chair arms SBA. Progressed distance into hallway step to initially around bed using FWW with Min- Mod BUE WB on FWW, improved LLE WB as distance progressed step length RLE forward but not passing L though, SBA and COST RECORDER managing O2 tank. Pt required 3 stop stand rest for reported tiring recovery, maintained mid- high 90s on 2L >1L>0.5 L. Completed stand>sit >supine>sit>stand SBA when returned to room HOB flat. Pt SPT back to chair SBA with good stability. Pt changed Supplimental O2 back to room and kept pt on 2L. Notified nursing improved SaO2 with reduction in supplimental provided. Pt had call light and all needs in reach with chair alarm donned before left . Gait Assessment Gait Gait Assistance Required: Standby Assistance Distance (Feet) 100 Able to Maintain Weight Bearing Status Yes During Gait Assistive Devices Assistive Device Gait Belt,Front Wheeled Walker Orthotic/Prosthetic Devices or Brace: No Gait Deviations General Gait Pattern Antalgic,Decreased Stride Length,Decreased Feet Clearance,Step-to Gait Factors Limiting Gait Function Factors Limiting Gait Function Decreased Activity Tolerance, Decreased Strength,Limited Range of Motion,Pain,Poor Balance,Respiratory Distress Comments Gait Comments see mobility details Stair Climbing Assessment Comments Stair Climbing Comments declined stairs, to tired will do before goes home. PT-Balance Assessment Sitting Balance and Reactions Static Sitting Balance Ability Normal Dynamic Sitting Balance Ability Normal Standing Balance and Reactions Static Standing Balance Ability Good Dynamic Standing Balance Ability Fair Device Used FWW 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,Half-Way Impaired Gross Range of Motion Lower Extremity ROM Assessment Within Functional Limits Strength Lower Extremity Strength Assessment Left Impaired Hip 3+/5 Knee 4-/5 Coordination Assessment Gross Coordination Gross Coordination WNL Sensation Assessment Sensation Gross Sensation WNL Muscle Tone Muscle Tone WNL Yes M6 PT-IP Treatment Start: 04/23/21 12:14 Freq: NEEDED Status: Active Protocol: Document 04/26/21 07:40 SP (Rec: 04/26/21 08:19 SP [id number]) Physical Therapy Treatment Education Education Provided Precautions,Safety M7 PT-IP Assessment and Plan Start: 04/23/21 12:14 Freq: NEEDED Status: Active Protocol: Document 04/26/21 07:40 SP (Rec: 04/26/21 08:19 SP [id number]) PT Summary Assessment and Plan Potential Rehabilitation Potential Fair Status of Condition at Evaluation Evolving Summary Impairments Pain,ROM,Strength,Balance, Coordination,Sensation,Tone, Cognition,Bed Mobility, Transfers,Gait,Activity Tolerance Progress Towards Goals Progressing Toward Goals,Slow Progress due to Activity Tolerance Assessment Summary Pt requires SBA during all mobility using FWW. Pt able to maintain [id number] on 0.5L during mobility. Pt will benefit from SNF to increase strength to increase functional mobility and activity tolerance. Goals Bed Mobility Goal Standby Assistance Transfer Goal Standby Assistance,Front Wheeled Walker Gait Goal Standby Assistance,Front Wheel Walker Gait Distance 150 Other Goals up/down 4 steps 1 rail CGA Days to Meet Goals 10 Frequency of Treatment Frequency Of Treatment Twice a Day Treatment Plan Physical Therapy Treatment Plan Bed Mobility Training,Transfer Training,Gait Training, Therapeutic Exercise,Balance Retraining,Post Op Education, Discharge Planning,Hot or Cold Pack,Neuromuscular Re-ed, Coordination Retraining,Manual Therapy Other Recommendations and Next Treatment gait, stairs, assess need use Focus of O2 w/ mobility. Precautions Posterior Hip Precautions No Hip Flexion > 90 degrees,No Hip Internal Rotation,No Hip Adduction Other Precautions WBAT LLE Recommendations To Nursing Amount of Assist Needed Standby Assistance Discharge Recommendations PT Discharge Recommendations SNF Rehab Transportation Needs at Discharge Private Vehicle,Wheelchair/ Cabulance
[2021-04-26 08:30] VITALS: BP 167/92; PULSE 99; RESP 16; TEMP 36.6; O2SAT 96
[2021-04-26] MEDS: ACETAMINOPHEN 325 MG TABLET 650 MG PO (08:39)
[2021-04-26] MEDS: DOCUSATE 100 MG CAPSULE PO (08:39)
[2021-04-26] MEDS: AMOXICILLIN/CLAV 875/125 MG 1 TAB PO (08:39)
[2021-04-26] MEDS: ASPIRIN EC 81 MG TABLET PO (08:39)
[2021-04-26] MEDS: METOPROLOL ER 50 MG TABLET 100 MG PO (08:39)
[2021-04-26] MEDS: OXYCODONE IR 5 MG TABLET PO (08:40)
--- NOTE | 2021-04-26 09:06 | CM.DPNOTE ---
DC Note CLAUDIA Jones has faxed updated DC order and signed DC Summary to Teresa at [facility]. Patient transported this morning via [facility] w/ portable O2 at 0830 to SNF Patient remained agreeable to plan, Teresa prepared to admit patient this morning. HEAVEN
--- NOTE | 2021-04-26 16:30 | PC.NURSE ---
Pt transfered to snf in [place] at 0840 this am. Facility called to hospital concerned that they had not received report yet. Did try to call but no response. Tried a second time and the welding pantograph machine operator tried the nurses station several times and then asked for this nurse to call back in 20 mins. This was done. Report given to Mariann admitting nurse for facility. She then inquired as to why it took this writer editor so long to contact her. Reviewed hospital course. Pt's episode of aspiration and need for O2. They have speach notes and they were told pt was on a dysphagia diet. However they reported pt would be on general. Pt will need O2 for now until she can be weaned. [place] out and has voided. No bm yet. Discussed wound care. Reviewed ortho status and mobility. After giving report and answering questions this writer editor received a phone call from Teresa asking why the pt's follow up appointments had not been made. Instructed in this area the facility's make the appointments because they arrange transportation. Teresa requested follow up appt to be made. This was done. message left for Teresa about appts but she didn't return call. Did call her a second time and she reported the voice mail she has wasn't working at the moment. She was given pt's appt times. Dr Garrison 05/06 at [address] Carreon 05/09 at 2:30 for ortho follow up in [facility]. Questions answered.
--- NOTE | 2021-04-27 07:56 | PC.NURSE ---
Rajendra james came to ED requesting taxi voucher for this patient. Upon review found that pt had been discharged from acute care w/ care mgt involvement. left message for care mgt to call Rajendra.
== END 2021-04-26 08:40 | DRG 521 ==
PROVIDERS: Internal Medicine; Orthopaedic Surgery Adult Reconstructive Orthopaedic Surgery; Admitting Provider Nurse Practitioner Family; PCP Family Medicine; Referring Provider Nurse Practitioner Family; Visit Provider Nurse Practitioner Family
PROC: 0SRS0JZ Replacement of Left Hip Joint, Femoral Surface with Synthetic Substitute, Open Approach (ICD-10-PCS; CPT 27125; principal; 2021-04-22 14:30)
DX: M84.452A Pathological fracture, left femur, initial encounter for fracture (principal); J69.0 Pneumonitis due to inhalation of food and vomit; J96.01 Acute respiratory failure with hypoxia; I10 Essential (primary) hypertension; E78.5 Hyperlipidemia, unspecified; G89.29 Other chronic pain; Z87.891 Personal history of nicotine dependence
CPT/HCPCS: 36415; 71045; 72170; 80048; 80053; 82962; 83735; 85014; 85018; 85025; 85610; 85730; 87635; 92526; 92610; 93005; 94640; 94760; 97110; 97116; 97162; 97166; 97530; 97535; C1776; C9803; J0295; J0690; J1170; J1885; J2270; J2405; J2704; J3010; J3475